=== PATIENT | female | born 1990 | race Caucasian/White ===

== ENCOUNTER → 2019-05-19 16:11 | Outpatient (CLI) | payer MEDICAID, SELFPAY ==
[2019-05-19 15:02] VITALS: BMI 29.0
[2019-05-19 17:14] LABS: Absolute Lymphocyte Count 2.25 X10^3/uL (0.83-4.51); Absolute Neutrophil Count 5.9 X10^3/uL (2.0-7.7); Basophil# 0.03 X10^3/uL; Basophil% 0.3 % (0-1); Eosinophil# 0.17 X10^3/uL; Eosinophils% 1.9 % (0-5); Hematocrit 38.1 % (37-47); Hemoglobin 12.8 g/dL (12.0-15.0); Lymphocyte # 2.25 X10^3/ul (4.0); Lymphocyte % 25.3 % (19-41); Mean Corp Hgb Conc 33.6 g/dL (32-36); Mean Corpuscular Hgb 30.7 pg (27.0-32.0); Mean Corpuscular Volume 91.4 fL (81-99); Mean Platelet Vol. 10.8 fl (6.2-12.0); Monocyte# 0.56 X10^3/uL; Monocyte% 6.3 % (0-10); NRBC Flagged by Analyzer 0 % (0-5); Neutrophil # 5.85 X10^3/uL (2.7-7.7); Neutrophil % 65.8 % (47-70); Platelet Count 307 K/mm3 (150-450); RBC Distribution Width CV 13.4 % (11.6-14.6); Red Blood Count 4.17 M/mm3 (4.2-5.4); White Blood Count 8.9 K/mm3 (4.4-11.0)
[2019-05-19 17:59] LABS: Glucose Challenge Gest 1H 50g 84 mg/dL (70-140)
[2019-05-19 18:07] LABS: Amphetamine Urine VISTA NEGATIVE (<1000 ng/mL); Barbiturate Urine VISTA NEGATIVE (< 200 ng/mL); Benzodiazepine Urine VISTA NEGATIVE (< 200 ng/mL); Cocaine Urine VISTA NEGATIVE (< 300 ng/mL); Ecstacy Urine VISTA NEGATIVE (< 500 ng/mL); Methadone Urine VISTA NEGATIVE (< 300 ng/mL); PCP Urine VISTA NEGATIVE (< 25 ng/mL); THC Urine VISTA POSITIVE (< 50 ng/mL); Vista UDS pH Range 5
[2019-05-19 18:51] LABS: HIV - WCH Non-Reactive (Nonreactive); Rubella IgG 26.4 IU/mL
[2019-05-19 21:54] LABS: Chlamydia Trachomatis by PCR Negative (Negative); Neisserai gonorrhoeae by PCR Negative (Negative); Probe Check PASS; Sample Adequacy Control PASS; Specimen Processing Control PASS
[2019-05-20 04:47] LABS: Rapid Plasmin Reagin (RPR) NONREACTIVE (NONREACTIVE)
[2019-05-22 03:05] LABS: HCV Quant. RNA PCR HCV Not Detected IU/mL (.)
[2019-05-24 15:46] LABS: HPV Reflexed? NOT INDICATED
== END ==
PROVIDERS: Referring Provider Obstetrics & Gynecology; Visit Provider Obstetrics & Gynecology
DX: O99.210 Obesity complicating pregnancy, unspecified trimester (principal); Z3A.00 Weeks of gestation of pregnancy not specified; Z87.898 Personal history of other specified conditions
CPT/HCPCS: 36415; 80307; 82950; 85025; 86592; 86703; 86762; 86850; 86900; 87086; 87088; 87186; 87491; 87522; 87591; 87624; 88175; G0145

== ENCOUNTER → 2019-06-17 15:35 | Outpatient (CLI) | payer MEDICAID, SELFPAY ==
[2019-06-17 15:22] VITALS: BMI 29.0
== END ==
PROVIDERS: Referring Provider Obstetrics & Gynecology; Visit Provider Obstetrics & Gynecology
DX: Z34.81 Encounter for supervision of other normal pregnancy, first trimester (principal); Z31.430 Encounter of female for testing for genetic disease carrier status for procreative management
CPT/HCPCS: 36415

== ENCOUNTER → 2019-07-15 09:42 | Outpatient (CLI) | payer MEDICAID, SELFPAY ==
[2019-07-15 09:14] VITALS: BMI 29.0
[2019-07-15 11:08] LABS: Hepatitis B Surface Antigen Non-Reactive (Nonreactive)
== END ==
PROVIDERS: Referring Provider Obstetrics & Gynecology; Visit Provider Obstetrics & Gynecology
DX: Z34.90 Encounter for supervision of normal pregnancy, unspecified, unspecified trimester (principal)
CPT/HCPCS: 36415; 87340

== ENCOUNTER → 2019-09-20 17:36 | Outpatient (CLI) | payer MEDICAID, SELFPAY ==
[2019-09-20 14:06] VITALS: BMI 29.0
[2019-09-20 18:50] LABS: Amphetamine Urine VISTA NEGATIVE (<1000 ng/mL); Barbiturate Urine VISTA NEGATIVE (< 200 ng/mL); Benzodiazepine Urine VISTA NEGATIVE (< 200 ng/mL); Cocaine Urine VISTA NEGATIVE (< 300 ng/mL); Ecstacy Urine VISTA NEGATIVE (< 500 ng/mL); Methadone Urine VISTA NEGATIVE (< 300 ng/mL); PCP Urine VISTA NEGATIVE (< 25 ng/mL); THC Urine VISTA POSITIVE (< 50 ng/mL); Vista UDS pH Range 6
== END ==
PROVIDERS: Referring Provider Obstetrics & Gynecology; Visit Provider Obstetrics & Gynecology
DX: Z87.898 Personal history of other specified conditions (principal)
CPT/HCPCS: 80307

== ENCOUNTER 2019-09-28 03:25 | Outpatient (CLI) | payer MEDICAID, SELFPAY ==
[2019-09-20 14:06] VITALS: BMI 29.0
[2019-09-28 04:13] VITALS: BMI 32.8
--- NOTE | 2019-09-29 04:44 | OB.TRI.PN ---
Progress Notes Date of Service: 09/28/19 Progress Note: seen for bleeding, FHT present no regular ctx dc home bleeding precautions - Problem List (1) Vaginal bleeding during Status: Acute Multi Select Codes - Urinary/Genital Urinary/Genital CPT Codes: Other Procedure See Report - no charge please report visit and ask Viky to update billing codes to have a no charge option
--- NOTE | 2019-10-01 11:24 | OB.TRI.PN ---
Progress Notes Date of Service: 10/01/19 Progress Note: steroid shot for prematurity, vaginal bleeding - Problem List (1) Vaginal bleeding during Status: Acute
== END 2019-09-28 04:20 | disposition home or self-care (01) ==
LOC: WPOUT 03:34 → WP 03:34
PROVIDERS: Visit Provider Obstetrics & Gynecology
DX: O46.90 Antepartum hemorrhage, unspecified, unspecified trimester (principal); Z3A.00 Weeks of gestation of pregnancy not specified
CPT/HCPCS: 59025; 59050; 99218; G0378

== ENCOUNTER 2019-09-29 23:48 | Observation (INO) | payer MEDICAID, SELFPAY ==
[2019-09-28 04:13] VITALS: BMI 32.8
[2019-09-29 18:32] VITALS: BMI 31.6
[2019-09-29] MEDS: 0.9% Saline Lock 10 ML Syringe IV (20:00)
[2019-09-29] MEDS: Lactated Ringers 1,000 ML 999 ML IV (20:15)
[2019-09-29] MEDS: Ondansetron 4 MG/2 ML Vial IV (20:18)
[2019-09-29] MEDS: Betamethasone/Betamethasone 30 MG/5 ML Vial 12 MG IM (20:21)
[2019-09-29 20:22] LABS: Hematocrit 34.4 % (37-47); Hemoglobin 11.4 g/dL (12.0-15.0); Mean Corp Hgb Conc 33.1 g/dL (32-36); Mean Corpuscular Hgb 30.8 pg (27.0-32.0); Mean Platelet Vol. 11.2 fl (6.2-12.0); Platelet Count 264 K/mm3 (150-450); RBC Distribution Width SD 44.6 fl (35.1-43.9); White Blood Count 12.9 K/mm3 (4.4-11.0)
[2019-09-29] MEDS: Acetaminophen 500 MG Tablet 1000 MG PO (20:30)
[2019-09-29] MEDS: Citalopram 20 MG Tablet PO (20:32)
[2019-09-29] MEDS: Docusate Sodium 100 MG Capsule PO (20:32)
[2019-09-29 20:49] LABS: Fibrinogen 668 mg/dl (203-444)
[2019-09-29] MEDS: Lactated Ringers 1,000 ML 125 ML IV (21:16)
[2019-09-29] MEDS: proMETHazine 25 MG/ML Syringe 12.5 MG IV (23:24)
[2019-09-29] MEDS: Zolpidem Tartrate 5 MG Tablet 10 MG PO (23:45)
--- NOTE | 2019-09-29 23:45 | OB.TRI.HP_ITS ---
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 (5) Depression with anxiety Status: Acute Comment: machelle andre PRN, refer to margaret for counseling (6) History of delivery Status: Acute Comment: planning RLTCS (7) History of depression Status: Acute Comment: recommend anazao (8) History of marijuana use Status: Acute Comment: incarcerated in past for this, doing well. encouraged cessation. (9) Tobacco use during Status: Acute Qualifiers: Comment: encouraged cessation (10) Status: Acute Qualifiers: Comment: carrier- negative, AFP-neg. NIPT low risk; needs 2 week follow up for anatomy-scheduled. (11) Supervision of normal Status: Acute Qualifiers: Comment: PRR INGE 12/25/19 Boy Mohamud Rousseau boyfriend Anthony History of Present Illness Date of Service: 09/29/19 Was patient seen by the physician?: Yes Reason For Visit: BLEEDING History of Present Illness: 29 yo @ 27 weeks presents with acute vaginal bleeding. She was seen several days ago for vaginal bleeding and is had persistent intermittent bleeding since. She was also having some cramping today. She was evaluated this morning at [facility] and left AMA. She denies any intercourse today and complains of increased anxiety and worry about her current symptoms. Allergies hydrocodone bitartrate [From Vicodin] Allergy (Verified 09/29/19 20:33) Anaphylaxis HIVES Penicillins Allergy (Verified 09/29/19 20:33) Anaphylaxis HIVES Sulfa (Sulfonamide Antibiotics) Allergy (Verified 09/29/19 20:33) Anaphylaxis HIVES - Pertinent Past Medical History Medical History: Past Medical History (Last Reviewed 09/20/19 @ 13:45 by Deidre Galvan) ADHD Anxiety and depression Surgical History: Past Surgical History (Last Reviewed 09/20/19 @ 13:45 by Deidre Galvan) delivery delivered Laboratory Studies: Laboratory Tests 09/29/19 09/29/19 09/29/19 Range/Units 20:10 20:10 20:10 WBC 12.9 H (4.4-11.0) K/mm3 RBC 3.70 L (4.2-5.4) M/mm3 Hgb 11.4 L (12.0-15.0) g/dL Hct 34.4 L (37-47) % MCV 93.0 (81-99) fL MCH 30.8 (27.0-32.0) pg MCHC 33.1 (32-36) g/dL RDW Std Deviation 44.6 H (35.1-43.9) fl RDW Coeff of Karmen 13.0 (11.6-14.6) % Plt Count 264 (150-450) K/mm3 MPV 11.2 (6.2-12.0) fl Fibrinogen 668 H (203-444) mg/dl Blood Type A POSITIVE Antibody Screen NEGATIVE Review of Systems Constitutional: Denies: Fever Cardiovascular: Denies: Chest Pain Respiratory: Denies: Cough Gastrointestinal: Denies: Abdominal Pain Gynecological: Reports: Vaginal bleeding Physical Exam General: Alert, Oriented x3 Cardiovascular: Regular rate Lungs: Normal air movement Abdomen: Soft, Non Tender 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 No cervical dilation. Plan STO overnight and if stable DC home tomorrow. Multi Select Codes - Visit Charges Observation E&M Codin Initial observation care L3
--- NOTE | 2019-09-30 00:01 | US_ITS ---
STUDY: SECOND AND THIRD TRIMESTER OBSTETRICAL ULTRASOUND - LIMITED REASON FOR EXAM: Female, 29 years old SPOTTING TODAY-HEAVIER YESTERDAY WITH CLOTS LMP: March 12, 2019. PRIOR ULTRASOUND: None. TECHNIQUE: Transabdominal TECHNICAL QUALITY: Adequate. FINDINGS: There is a single intrauterine fetus. The fetus is in a breech presentation. There is demonstrated cardiac activity with a heart rate of 152 bpm. There is a normal amniotic fluid volume. The largest amniotic fluid pocket measures 5.8 cm x 2.0 cm. The amniotic fluid index (LION) is 17.0 cm. The placenta is right lateral in location and is not low lying. There are Grade 1 placental changes. The cervix measures 4.7 cm in length. BIOMETRY: Age by LMP: 28 weeks, 6 days. INGE by LMP: December 17, 2019. US/OB Limited (No Biometrics) IMPRESSION: No evidence of placenta abruption. No evidence of placenta previa. Electronically Signed: Jeff Ignacio, at 9:34 EST , Service support ,
[2019-09-30] MEDS: Calcium Carbonate 500 MG Tablet PO (00:52)
[2019-09-30] MEDS: Lactated Ringers 1,000 ML 125 ML IV (04:42)
[2019-09-30 05:01] LABS: Hematocrit 32.9 % (37-47); Hemoglobin 10.8 g/dL (12.0-15.0); Mean Corp Hgb Conc 32.8 g/dL (32-36); Mean Corpuscular Hgb 30.4 pg (27.0-32.0); Mean Corpuscular Volume 92.7 fL (81-99); Mean Platelet Vol. 11.4 fl (6.2-12.0); Platelet Count 261 K/mm3 (150-450); RBC Distribution Width CV 12.9 % (11.6-14.6); RBC Distribution Width SD 43.8 fl (35.1-43.9); Red Blood Count 3.55 M/mm3 (4.2-5.4); White Blood Count 12.5 K/mm3 (4.4-11.0)
[2019-09-30 05:12] LABS: Fibrinogen 642 mg/dl (203-444)
--- NOTE | 2019-09-30 08:00 | PN.OBGYN_ITS ---
Subjective: Doing well this AM. Less anxious. Small tinge of dark blood on toilet tissue only today. Ultrasound scheduled this AM - Physical Exam Vitals/I&O's: Weight: 195 lb 12.328 oz Body Mass Index (BMI) 31.6 Intake and Output for Last 24 Hours 09/28/19 09/29/19 09/30/19 23:59 23:59 23:59 Intake Total 1400 / 1400 1029.17 / 1029.17 Output Total 200 / 200 Balance 1200 / 1200 1029.17 / 1029.17 General: Alert, Oriented x3 Laboratory Results 09/29/19 20:10: Fibrinogen 668 H 09/29/19 20:10: WBC 12.9 H, RBC 3.70 L, Hgb 11.4 L, Hct 34.4 L, MCV 93.0, MCH 30.8, MCHC 33.1, RDW Std Deviation 44.6 H, RDW Coeff of Karmen 13.0, Plt Count 264, MPV 11.2 09/29/19 20:10: Blood Type A POSITIVE, Antibody Screen NEGATIVE 09/30/19 04:47: Fibrinogen 642 H 09/30/19 04:47: WBC 12.5 H, RBC 3.55 L, Hgb 10.8 L, Hct 32.9 L, MCV 92.7, MCH 30.4, MCHC 32.8, RDW Std Deviation 43.8, RDW Coeff of Karmen 12.9, Plt Count 261, MPV 11.4 Current Medications Acetaminophen (Tylenol) 1,000 mg PO Q8H PRN PRN PRN Reason: Pain or Fever Last Admin: 09/29/19 20:30 Dose: 1,000 mg Documented by: Calcium Carbonate (Tums) 500 mg PO Q6H PRN PRN PRN Reason: HEARTBURN OR INDIGESTION Last Admin: 09/30/19 00:52 Dose: 500 mg Documented by: Citalopram Hydrobromide (Celexa) 20 mg PO DAILY [facility] Last Admin: 09/29/19 20:32 Dose: 20 mg Documented by: Docusate Sodium (Colace) 100 mg PO DAILY [facility] Last Admin: 09/29/19 20:32 Dose: 100 mg Documented by: Lactated Ringer's () 1,000 mls @ 125 mls/hr IV .Q8H [facility] Last Admin: 09/30/19 04:42 Dose: 125 mls/hr Documented by: Ondansetron HCl (Zofran) 4 mg IV Q8H PRN PRN PRN Reason: NAUSEA Last Admin: 09/29/19 20:18 Dose: 4 mg Documented by: Promethazine HCl (Phenergan) 12.5 mg IV Q6H PRN PRN PRN Reason: NAUSEA/VOMITING Last Admin: 09/29/19 23:24 Dose: 12.5 mg Documented by: Sodium Chloride () 5 - 15 ml IV UD [facility] Last Admin: 09/29/19 20:00 Dose: 10 ml Documented by: Medical Necessity - Tobacco Use Smoking Status: Current every day smoker Assessment/Plan All Active Problems (Last Reviewed 09/20/19 @ 13:45 by Deidre Galvan) Vaginal bleeding during (Acute) Influenza vaccination declined (Acute) Low grade squamous intraepithelial lesion (LGSIL) on Papanicolaou smear of cervix (Acute) Genital HSV (Acute) Depression with anxiety (Acute) History of delivery (Acute) History of depression (Acute) History of marijuana use (Acute) Tobacco use during (Acute) (Acute) Supervision of normal (Acute) Bleeding in -No CTX or active bleeding this am -Active fetus with good FHT -In normal US will DC home later today.
[2019-09-30] MEDS: Acetaminophen 500 MG Tablet 1000 MG PO (11:24)
[2019-09-30] MEDS: Citalopram 20 MG Tablet PO (11:24)
[2019-09-30] MEDS: Docusate Sodium 100 MG Capsule PO (11:25)
== END 2019-09-30 11:25 | disposition home or self-care (01) ==
LOC: WP 09-30 07:33 → WPOUT 09-30 13:14 → WP 09-30 13:14
PROVIDERS: Admitting Provider Obstetrics & Gynecology; Visit Provider Obstetrics & Gynecology
DX: O46.92 Antepartum hemorrhage, unspecified, second trimester (principal); Z3A.27 27 weeks gestation of pregnancy; O98.312 Other infections with a predominantly sexual mode of transmission complicating pregnancy, second trimester; A60.00 Herpesviral infection of urogenital system, unspecified; F41.8 Other specified anxiety disorders; O99.342 Other mental disorders complicating pregnancy, second trimester; O99.332 Smoking (tobacco) complicating pregnancy, second trimester; F17.200 Nicotine dependence, unspecified, uncomplicated
CPT/HCPCS: 96361 ×2; 96374; 96376; 36415; 59025; 59050; 76815; 85027; 85384; 86850; 86900; 86901; 96372; 99218; J7120; A4216; G0378; J0702; J2405

== ENCOUNTER 2019-09-30 20:32 | Outpatient (CLI) | payer MEDICAID, SELFPAY ==
[2019-09-29 18:32] VITALS: BMI 31.6
[2019-09-30 20:41] VITALS: BMI 32.3
[2019-09-30] MEDS: Betamethasone/Betamethasone 30 MG/5 ML Vial 12 MG IM (20:55)
== END 2019-09-30 21:05 | disposition home or self-care (01) ==
LOC: WPOUT 20:34 → WP 20:35
PROVIDERS: Referring Provider Obstetrics & Gynecology; Visit Provider Obstetrics & Gynecology
DX: R69 Illness, unspecified (principal)
CPT/HCPCS: 59025; 96372; 99218; G0378; J0702

== ENCOUNTER → 2019-10-10 09:41 | Outpatient (CLI) | payer MEDICAID, SELFPAY ==
[2019-10-10 09:12] VITALS: BMI 32.3
[2019-10-10 10:27] LABS: Absolute Lymphocyte Count 2.35 X10^3/uL (0.83-4.51); Absolute Neutrophil Count 7.5 X10^3/uL (2.0-7.7); Basophil# 0.02 X10^3/uL; Basophil% 0.2 % (0-1); Eosinophil# 0.16 X10^3/uL; Eosinophils% 1.5 % (0-5); Hematocrit 32.1 % (37-47); Hemoglobin 10.6 g/dL (12.0-15.0); Lymphocyte # 2.35 X10^3/ul (4.0); Lymphocyte % 21.8 % (19-41); Mean Corpuscular Hgb 30.5 pg (27.0-32.0); Mean Corpuscular Volume 92.2 fL (81-99); Mean Platelet Vol. 11.1 fl (6.2-12.0); Monocyte# 0.66 X10^3/uL; Monocyte% 6.1 % (0-10); NRBC Flagged by Analyzer 0 % (0-5); Neutrophil # 7.51 X10^3/uL (2.7-7.7); Neutrophil % 69.6 % (47-70); Platelet Count 273 K/mm3 (150-450); RBC Distribution Width CV 12.9 % (11.6-14.6); RBC Distribution Width SD 43.3 fl (35.1-43.9); Red Blood Count 3.48 M/mm3 (4.2-5.4); White Blood Count 10.8 K/mm3 (4.4-11.0)
[2019-10-10 10:43] LABS: Glucose Challenge Gest 1H 50g 205 mg/dL (70-140)
== END ==
PROVIDERS: Referring Provider Obstetrics & Gynecology; Visit Provider Obstetrics & Gynecology
DX: Z34.81 Encounter for supervision of other normal pregnancy, first trimester (principal)
CPT/HCPCS: 36415; 82950; 85025

== ENCOUNTER → 2019-10-31 16:08 | Outpatient (CLI) | payer MEDICAID, SELFPAY ==
[2019-10-31 14:27] VITALS: BMI 32.3
--- NOTE | 2019-10-31 16:09 | US_ITS ---
STUDY: SECOND AND THIRD TRIMESTER OBSTETRICAL ULTRASOUND REASON FOR EXAM: Female, 29 years old bleeding for over a month. Discharging dried blood.. Itching for a month. LMP: March 20, 2019. TECHNIQUE: PICC line TECHNICAL QUALITY: September 30, 2019. PRIOR ULTRASOUND: None. FINDINGS: There is a single intrauterine fetus. The fetus is in a cephalic presentation. There is demonstrated cardiac activity with a heart rate of 138 bpm. There is a normal amniotic fluid volume. The largest amniotic fluid pocket measures 5.77 cm. The amniotic fluid index (LION) is 17.4 cm. The placenta is right lateral in location and is not low lying. There are Grade 1 placental changes. The cervix measures 8.8 cm in length. The bilateral adnexal regions are normal. BIOMETRY: BPD: 8.03 cm: 32 weeks, 2 days HC: 29.82 cm: 33 weeks, 1 days AC: 27.88 cm: 32 weeks, 0 days FL: 6.28 cm: 32 weeks, 4 days CI: 82 FL/BPD: 78 FL/HC: FL/AC: 23 HC/AC: 1.07 age by current US: 32 weeks, 4 days. INGE by current US: December 22, 2019. Estimated weight: 1932 grams, +/- 282 grams, 42 %. age by prior US: 33 weeks, 2 days. INGE by prior US: December 17, 2019. Age by LMP: 32 weeks, 1 days. INGE by LMP: December 25, 2019. In the region of the cervix and upper vagina there is a linear echogenic focus of uncertain etiology. US/OB Limited With Biometrics IMPRESSION: 1. Live single intrauterine at 32 weeks, 4 days. INGE is December 22, 2019. There is adequate interval growth since the prior ultrasound. 2. EFW of 1932 g. 3. LION of 17.4 cm. 4. Right lateral grade 1 placenta. 5. Vertex presentation. 6. Echogenic linear structure in the cervix and vaginal area of on certain etiology. Electronically Signed: Corwin Almaguer DO at 20:53 EST Tel [phone], Service support ,
== END ==
PROVIDERS: Referring Provider Obstetrics & Gynecology; Visit Provider Obstetrics & Gynecology
DX: O46.90 Antepartum hemorrhage, unspecified, unspecified trimester (principal); Z3A.00 Weeks of gestation of pregnancy not specified
CPT/HCPCS: 76816

== ENCOUNTER → 2019-11-08 15:07 | Outpatient (CLI) | payer MEDICAID, SELFPAY ==
[2019-10-31 14:27] VITALS: BMI 32.3
[2019-11-08 15:37] LABS: Absolute Lymphocyte Count 2.41 X10^3/uL (0.83-4.51); Absolute Neutrophil Count 6.2 X10^3/uL (2.0-7.7); Basophil# 0.02 X10^3/uL; Basophil% 0.2 % (0-1); Eosinophil# 0.11 X10^3/uL; Eosinophils% 1.2 % (0-5); Hematocrit 32.4 % (37-47); Hemoglobin 10.7 g/dL (12.0-15.0); Lymphocyte # 2.41 X10^3/ul (4.0); Lymphocyte % 25.8 % (19-41); Mean Corpuscular Hgb 30.5 pg (27.0-32.0); Mean Corpuscular Volume 92.3 fL (81-99); Mean Platelet Vol. 11.9 fl (6.2-12.0); Monocyte# 0.61 X10^3/uL; Monocyte% 6.5 % (0-10); NRBC Flagged by Analyzer 0 % (0-5); Neutrophil # 6.16 X10^3/uL (2.7-7.7); Neutrophil % 65.9 % (47-70); Platelet Count 235 K/mm3 (150-450); RBC Distribution Width CV 12.8 % (11.6-14.6); RBC Distribution Width SD 42.5 fl (35.1-43.9); Red Blood Count 3.51 M/mm3 (4.2-5.4); White Blood Count 9.4 K/mm3 (4.4-11.0)
[2019-11-08 15:57] LABS: Fibrinogen 618 mg/dl (203-444)
[2019-11-28 09:30] LABS: Kleihauer-Betke Negative
== END ==
PROVIDERS: Referring Provider Nurse Practitioner Women's Health; Visit Provider Nurse Practitioner Women's Health
DX: O46.90 Antepartum hemorrhage, unspecified, unspecified trimester (principal); Z3A.00 Weeks of gestation of pregnancy not specified
CPT/HCPCS: 36415; 85025; 85384; 85460

== ENCOUNTER 2019-11-28 12:45 | Outpatient (CLI) | payer MEDICAID, SELFPAY ==
[2019-10-31 14:27] VITALS: BMI 32.3
[2019-11-16 13:32] VITALS: BMI 32.3
--- NOTE | 2019-11-28 12:46 | US_ITS ---
STUDY: SECOND AND THIRD TRIMESTER OBSTETRICAL ULTRASOUND - LIMITED REASON FOR EXAM: Female, 29 years old GROWTH . Gestational diabetes. LMP: 03/20/2019. PRIOR ULTRASOUND: 10/31/2019. TECHNIQUE: Transabdominal TECHNICAL QUALITY: Adequate. FINDINGS: There is a single intrauterine fetus. The fetus is in a cephalic presentation. There is demonstrated cardiac activity with a heart rate of 125 bpm. There is a normal amniotic fluid volume. The largest amniotic fluid pocket measures 6.2 cm. The amniotic fluid index (LION) is 20.1 cm. The placenta is right lateral and not low lying. There are Grade 2 placental changes. The cervix measures 3.8 cm in length. BIOMETRY: BPD: 8.57 cm.: 34 weeks, 4 days HC: 31.30 cm.: 35 weeks, 1 days AC: 30.69 cm.: 34 weeks, 5 days FL: 7.01 cm.: 36 weeks, 0 days Age by LMP: 36 weeks, 1 days. INGE by LMP: 12/25/2019. age by prior US: 36 weeks, 4 days. INGE by prior US: 12/22/2019.. age by current US: 35 weeks, 1 days. INGE by current US: 01/01/2020. Estimated weight: 2576 grams, +/- 376 grams, 23 percentile. Gender: Not demonstrated. US/OB Limited With Biometrics IMPRESSION: Single viable intrauterine gestation of 35 weeks, 1 day with estimated date of delivery of 01/01/2020. Estimated weight is 2576 g. Electronically Signed: Reinaldo Couch MD at 7:05 EST , Service support ,
[2019-11-28 14:16] LABS: Protein, Urine (Random) 31.3 mg/dL (<11.9); Protein:Creat Ratio 298 mg/g CRE (0-200)
[2019-11-28 14:35] VITALS: BMI 33.6
[2019-11-28 14:44] LABS: Hematocrit 33.2 % (37-47); Hemoglobin 10.9 g/dL (12.0-15.0); Mean Corp Hgb Conc 32.8 g/dL (32-36); Mean Corpuscular Hgb 29.9 pg (27.0-32.0); Mean Corpuscular Volume 91.2 fL (81-99); Platelet Count 224 K/mm3 (150-450); RBC Distribution Width CV 13.1 % (11.6-14.6); RBC Distribution Width SD 43.1 fl (35.1-43.9); Red Blood Count 3.64 M/mm3 (4.2-5.4); White Blood Count 8.5 K/mm3 (4.4-11.0)
[2019-11-28 15:03] LABS: Partial Thromboplast Time 28.8 Seconds (24.1-36.2); Prothrombin Time (Protime)PT. 12.6 SECONDS (11.7-14.9)
[2019-11-28 15:08] LABS: AST(SGOT) 9 U/L (15-37); Alanine Aminotransfer ALT/SGPT 14 U/L (13-56); Creatinine, Serum 0.71 mg/dL (0.55-1.02); EST Glomerular Filtration Rate 104 mL/min (>60); Est Glom Filt Rate - Afr Amer 126 mL/min (>60)
--- NOTE | 2019-11-29 07:54 | OB.TRI.PN ---
Progress Notes Date of Service: 11/28/19 Progress Note: Patient presents for triage evaluation secondary to elevated blood pressures FHT: 130 Moderate variability reactive no decelerations category I tracing [place]: No regular contractions Assessment and plan: Preeclampsia with mild features, no headaches labs drawn and no significant abnormality reactive NST, reassuring maternal and status patient discharged to home to follow-up as scheduled in office and plan delivery at 37 weeks now. See problem list details for additional plan information. Laboratory Studies: Laboratory Tests 11/28/19 11/28/19 11/28/19 Range/Units 14:30 14:30 14:30 WBC 8.5 (4.4-11.0) K/mm3 RBC 3.64 L (4.2-5.4) M/mm3 Hgb 10.9 L (12.0-15.0) g/dL Hct 33.2 L (37-47) % MCV 91.2 (81-99) fL MCH 29.9 (27.0-32.0) pg MCHC 32.8 (32-36) g/dL RDW Std Deviation 43.1 (35.1-43.9) fl RDW Coeff of Karmen 13.1 (11.6-14.6) % Plt Count 224 (150-450) K/mm3 MPV 12.0 (6.2-12.0) fl PT 12.6 (11.7-14.9) SECONDS INR 1.0 APTT 28.8 (24.1-36.2) Seconds Creatinine 0.71 (0.55-1.02) mg/dL Estim Creat Clear Calc 107.10 ml/min Est GFR (MDRD) Af Amer 126 (>60) mL/min Est GFR (MDRD) Non-Af 104 (>60) mL/min Uric Acid 4.0 (2.6-6.0) mg/dL AST 9 L (15-37) U/L ALT 14 (13-56) U/L U Random Total Protein (<11.9) mg/dL Urine Creatinine (NO RANGE EST.) mg/dL Protein/Creatinin Ratio (0-200) mg/g CRE 11/28/19 Range/Units 13:55 WBC (4.4-11.0) K/mm3 RBC (4.2-5.4) M/mm3 Hgb (12.0-15.0) g/dL Hct (37-47) % MCV (81-99) fL MCH (27.0-32.0) pg MCHC (32-36) g/dL RDW Std Deviation (35.1-43.9) fl RDW Coeff of Karmen (11.6-14.6) % Plt Count (150-450) K/mm3 MPV (6.2-12.0) fl PT (11.7-14.9) SECONDS INR APTT (24.1-36.2) Seconds Creatinine (0.55-1.02) mg/dL Estim Creat Clear Calc ml/min Est GFR (MDRD) Af Amer (>60) mL/min Est GFR (MDRD) Non-Af (>60) mL/min Uric Acid (2.6-6.0) mg/dL AST (15-37) U/L ALT (13-56) U/L U Random Total Protein 31.3 H (<11.9) mg/dL Urine Creatinine 105.00 (NO RANGE EST.) mg/dL Protein/Creatinin Ratio 298 H (0-200) mg/g CRE - Problem List (1) Preeclampsia Status: Acute Comment: plan delivery at 37 weeks cs scheduled Multi Select Codes - Urinary/Genital Urinary/Genital CPT Codes: 52020-91 non-stress test Interp
== END 2019-11-28 15:25 | disposition home or self-care (01) ==
LOC: US 12:46 → WPOUT 14:14 → OBT 14:15
PROVIDERS: Nurse Practitioner Women's Health; Referring Provider Obstetrics & Gynecology; Visit Provider Obstetrics & Gynecology
DX: O14.90 Unspecified pre-eclampsia, unspecified trimester (principal); Z3A.00 Weeks of gestation of pregnancy not specified
CPT/HCPCS: 36415; 59025; 59050; 76816; 82565; 82570; 84156; 84450; 84460; 84550; 85027; 85610; 85730; 87081; 99218; G0378

== ENCOUNTER 2019-12-05 05:53 | Inpatient (IN) | payer MEDICAID, SELFPAY ==
[2019-11-28 14:01] VITALS: BMI 32.3
[2019-12-01 15:09] VITALS: BMI 33.6
[2019-12-05] VITALS (15 sets, daily range): BP systolic 90–131; BP diastolic 48–89; PULSE 53–69; RESP 12–16; TEMP 35.5–36.5; O2SAT 97–100; BMI 33.8
[2019-12-05] MEDS: Lactated Ringers 1,000 ML 999 ML IV (06:10)
[2019-12-05 06:45] LABS: Bedside Glucose 77 mg/dL (70-110)
[2019-12-05 07:00] LABS: Absolute Lymphocyte Count 3.03 X10^3/uL (0.83-4.51); Absolute Neutrophil Count 5.5 X10^3/uL (2.0-7.7); Basophil# 0.03 X10^3/uL; Basophil% 0.3 % (0-1); Eosinophil# 0.17 X10^3/uL; Eosinophils% 1.8 % (0-5); Hematocrit 33.8 % (37-47); Hemoglobin 11.1 g/dL (12.0-15.0); Lymphocyte # 3.03 X10^3/ul (4.0); Lymphocyte % 32.2 % (19-41); Mean Corp Hgb Conc 32.8 g/dL (32-36); Mean Corpuscular Hgb 29.8 pg (27.0-32.0); Mean Corpuscular Volume 90.6 fL (81-99); Mean Platelet Vol. 12.6 fl (6.2-12.0); Monocyte# 0.62 X10^3/uL; Monocyte% 6.6 % (0-10); NRBC Flagged by Analyzer 0 % (0-5); Neutrophil # 5.53 X10^3/uL (2.7-7.7); Neutrophil % 58.7 % (47-70); Platelet Count 247 K/mm3 (150-450); RBC Distribution Width CV 13.2 % (11.6-14.6); RBC Distribution Width SD 43.2 fl (35.1-43.9); Red Blood Count 3.73 M/mm3 (4.2-5.4); White Blood Count 9.4 K/mm3 (4.4-11.0)
[2019-12-05] MEDS: Sodium Citrate/Citric Acid 30 ML UDC PO (07:11)
[2019-12-05] MEDS: Lactated Ringers 1,000 ML 150 ML IV (07:16)
--- NOTE | 2019-12-05 07:26 | PCM.HPOB.BLA ---
- Problem List (1) Depression with anxiety Status: Acute Comment: celexa, vistaril PRN, refer to margaret for counseling (2) Genital HSV Status: Acute Qualifiers: Comment: acyclovir at 36 weeks. (3) Gestational diabetes Status: Acute Qualifiers: Comment: diabetic diet, growth us at 36 weeks. delivery at 39 (4) History of delivery Status: Acute Comment: planning RLTCS (5) History of depression Status: Acute Comment: recommend anazao (6) History of marijuana use Status: Acute Comment: incarcerated in past for this, doing well. encouraged cessation. 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 NIPT low risk; needs 2 week follow up for anatomy-scheduled. 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 Is patient in pain?: No Allergies hydrocodone bitartrate [From Vicodin] Allergy (Verified 11/28/19 13:44) Anaphylaxis Penicillins Allergy (Verified 11/28/19 13:44) Anaphylaxis Sulfa (Sulfonamide Antibiotics) Allergy (Verified 11/28/19 13:44) Anaphylaxis Medications Citalopram [Celexa] 20 mg PO DAILY 09/30/19 [History Confirmed 12/01/19] blood sugar diagnostic See Rx Instructions .ROUTE .MEDSUPPLY #100 ea 10/10/19 [Rx Confirmed 12/01/19] blood-glucose meter See Rx Instructions .ROUTE .MEDSUPPLY #1 ea 10/10/19 [Rx Confirmed 12/01/19] acyclovir 800 mg tablet 800 mg PO DAILY #30 tab 11/28/19 [Rx Confirmed 12/01/19] Last Menstral Period: 03/12/19 Zika: Zika virus screening: Negative : No PFSH PFSH Medical History ADHD (Acute) Anxiety and depression (Acute) Social History (Updated 12/01/19 @ 16:[address] 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 Date Name GA/Weeks Outcome Route Bth Weight Infant Gen Labor Lgth Anesthesia Del Locatn Provider FOB Unknown 2015 [facility] live - full term 6lbs Female spinal [facility] Delivery Date: On 05/19/19 @ 15:02 Alyssa Braun c/s due to patients request HPI OB CHECK: Details: STEVE ACEVEDO is a 29 year old who presents for RLTCS due to previous and preeclampsia with mild features. OB Visit INGE Calculator Estimated Delivery Date Method Current WG Current Estimate 12/25/19 Ultrasound #1 36w 4d Other Estimates 12/17/19 LMP (Certain) 37w 5d Expected Delivery Route/Plan LTCS Labor Preferences- labor support person: Anthony pain management options preferred: c section cut cord/dad catch: [] : [] PP control planned: [] discussed possible routes of delivery and associated risks: [] special requests: [] Specific Issue/Plans flu vaccine: declines tdap vaccine: given rhogam: na LARC form signed: yes Problem list reviewed and updated with the most current plan of care details and appropriate orders placed. Relevant counseling for the gestational age provided. Continue routine care and follow up unless otherwise noted in visit notes/problem list details Initial Weight: Not Recorded Date EGA Weight BP Urine Prot Glucose FHR FuHt Pres Dilation Effaced St Visit Note 05/19/19 8w 4d 199 lb 06/17/19 12w 5d 192 lb 116/70 Trace Negative 160 no vb cramping, had some nausea 07/15/19 16w 5d 195 lb 110/70 Negative Negative 150 no vb cramping 08/17/19 21w 3d 200 lb 108/66 Negative Negative 145 22 no vb cramping 09/20/19 26w 2d 200 lb 2 oz 112/73 Negative Negative 150 26 no vb cramping 10/10/19 29w 1d 204 lb 127/74 Negative Negative 150 30 SM- no vb lof good fm no regular ctx cbc gct tdap 10/31/19 32w 1d 203 lb 2 oz 118/80 Trace Negative 149 33 MH-off and on light bleeding several days with cramping. Also vaginal itching. Good FM. Some cramping. MH-off and on light bleeding several days with cramping. Also vaginal itching. Good FM. Some cramping. BS >50% WNL but only eating/checking twice a day. Scheduled with dietitician. US today. 11/16/19 34w 3d 204 lb 6 oz 130/84 Negative Negative 131 34 MH-light spotting off and on entire /stable. No CTX. Good FM. BS WNL. 36 wk growth US scheduled. 11/28/19 36w 1d 202 lb 150/100 3+ A* Negative 161 36 0 MH-noted elevated BP and proteinuria. GBS done. To for monitoring, Pre E labs. MH-noted elevated BP and proteinuria. GBS done. No headaches. To for monitoring, Pre E labs. 12/01/19 36w 4d 205 lb 132/88 Negative Negative 150 37 SM- no vb lof good fm no regular ctx. recommend delivery at 37 weeks Notes Visit Date: 12/01/19 ??No visit notes to display Visit Date: 11/28/19 ??No visit notes to display Visit Date: 11/16/19 ??No visit notes to display Visit Date: 10/31/19 ??No visit notes to display Visit Date: 10/10/19 ??No visit notes to display Visit Date: 09/20/19 ??no vb cramping ??Sherley Houston MD on 09/20/19 Visit Date: 08/17/19 ??no vb cramping ??Sherley Houston MD on 08/17/19 Visit Date: 07/15/19 ??no vb cramping ??Sherley Houston MD on 07/15/19 Visit Date: 06/17/19 ??no vb cramping, had some nausea ??Sherley Houston MD on 06/18/19 Visit Date: 05/19/19 ??No visit notes to display ACOG First Trimester First Trimester: Desire for , Alcohol, Tobacco Cessation, Illicit/Recreational Drug/Substance Use, Intimate Partner Violence, Barriers to care, Unstable Housing, Communication Barriers, Environmental/Work Hazards, Anticipated Course of Care, Toxoplasmosis Precations, Use of Any medications, Sexual activity, Exercise, Dental Care, Sauna/Hot tub use, Seat Belt use, Childbirth classes/Hospital facilities, , Travel, Indications for US and Screening for Aneuploidy Second Trimester Second Trimester: Signs and Symptoms of Labor, Selecting a care provider, Reproductive Life Planning, Care Planning, Tobacco Cessation, Depression/Anxiety and Intimate Partner Violence Third Trimester Third Trimester: Pain Management Plans, Labor support person(s), Immediate Larc, Movement Monitoring and Feeding Yes ; discussed Trial of Labor after Counseling or discussed Circumcision preference Diagnostics Diagnostics Diagnostics Blood Type A POSITIVE 09/29/19 Antibody Screen NEGATIVE 09/29/19 Glucose 1 Hr 50 gm 205 mg/dL (70-140) H 10/10/19 Hgb 10.9 g/dL (12.0-15.0) L 11/28/19 Hct 33.2 % (37-47) L 11/28/19 Details: HIV: Urine Culture: Sequential Screen: NIPT Screen: ROS Const Reports system reviewed and no additional complaints, except as docu Card Reports system reviewed and no additional complaints, except as docu Resp Reports system reviewed and no additional complaints, except as docu GI Reports system reviewed and no additional complaints, except as docu, Reports nausea Reports system reviewed and no additional complaints, except as docu Musc Reports system reviewed and no additional complaints, except as docu Exam Const General: cooperative, healthy appearing, comfortable, anxious HENMT Head: normal to inspection Nose: external nose normal Face and sinus: normal facial exam Neck Neck: normal visual inspection, full ROM, no lymphadenopathy Thyroid: thyroid normal Chest Chest palpation & inspection: normal inspection of the chest Resp Effort & Inspection: normal respiratory effort GI Inspection: normal to inspection Palpation: soft, other (gravid uterus) Other: vertex and appropriate size for gestational age Other: Cervical Exam: Extrem General: pedal edema Results POC Urinalysis 2 Dip (Clinic) Office Urine Glucose Negative Last Edit by Alyssa Braun on 12/01/19 15:12 Office Urine Protein Negative Last Edit by Alyssa Braun on 12/01/19 15:12 Assessment & Plan Problems 1. Preeclampsia O14.90 2. Diet controlled gestational diabetes mellitus (GDM) in third trimester O24.410 3. Influenza vaccination declined Z28.21 4. 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 Herpes simplex vulvovaginitis A60.04 6. Depression with anxiety F41.8 7. History of delivery Z98.891 8. Encounter for supervision of other normal in third trimester Z34.83 9. 36 weeks gestation of Z3A.36 10. Maternal tobacco use in third trimester O99.333 11. History of marijuana use Z87.898 12. History of depression Z86.59 plan RLTCS Orders Orders: POC Urinalysis 2 Dip (Clinic) Today Coding Level of Care Code OB Routine Diagnoses Preeclampsia O14.90 Diet controlled gestational diabetes mellitus (GDM) in third trimester O24.410 ??Gestational diabetes mellitus control: diet-controlled ??Trimester: third trimester Influenza vaccination declined Z28.21 Low grade squamous intraepithelial lesion (LGSIL) on Papanicolaou smear of cervix R87.612 Herpes simplex vulvovaginitis A60.04 ??Herpes simplex infection site: vulvovaginitis Depression with anxiety F41.8 History of delivery Z98.891 Encounter for supervision of other normal in third trimester Z34.83 ??Normal : other normal ??Trimester: third trimester 36 weeks gestation of Z3A.36 ??Weeks of gestation: 36 weeks Maternal tobacco use in third trimester O99.333 ??Trimester: third trimester History of marijuana use Z87.898 History of depression Z86.59
[2019-12-05 07:33] LABS: Amphetamine Urine VISTA NEGATIVE (<1000 ng/mL); Barbiturate Urine VISTA NEGATIVE (< 200 ng/mL); Benzodiazepine Urine VISTA NEGATIVE (< 200 ng/mL); Cocaine Urine VISTA NEGATIVE (< 300 ng/mL); Ecstacy Urine VISTA NEGATIVE (< 500 ng/mL); Methadone Urine VISTA NEGATIVE (< 300 ng/mL); PCP Urine VISTA NEGATIVE (< 25 ng/mL); THC Urine VISTA POSITIVE (< 50 ng/mL); Vista UDS pH Range 5
--- NOTE | 2019-12-05 07:36 | NURSING ---
pt emesis after taking bicitra for scheduled RC/S
--- NOTE | 2019-12-05 08:00 | PLAC_PTH ---
PATIENT: STEVE ACEVEDO LOC: [facility] U#:[id number] AGE/SX: ROOM: WP004 RE12/05/[address]: Dr. Sherley Houston MD : 1990 BED: 1 DIS: 12/08/2019 SPEC #: [id number] RECD: 12/05/19 11:08 STATUS: CAMELIA REVicky #: [id number] BILL: 12/05/19 08:[address]: Sherley Houston DEPT: SURGICAL PATHOLOGY RECD BY: Swapnil Reyes ENTERED: 12/05/19 13:34 SP TYPE: PLACENTA OTHR DR: No Primary Care Phys Tissues: Placenta, NOS Procedures: Surgery Specimen Level V HEADER OPERATION: Repeat section PRE-OP DIAGNOSIS: Labor and delivery TISSUE SUBMITTED: Placenta MICROSCOPIC DIAGNOSIS Placenta: Placental disc - third trimester placenta, fragmented (338 gm). -?Extensive area of infarction involving thinnest portion of the placental disc with focal calcifications (occupying ~30% of the placental disc). Membranes - no pathologic diagnosis. Umbilical cord - three blood vessels and no pathologic diagnosis. SJ:lalo 12/07/19 MICROSCOPIC DESCRIPTION Slides are reviewed. GROSS DESCRIPTION SPECIMEN: PLACENTA / CLINICAL INFORMATION: A. Weight: 2.255 kg B. Gestational Age: 37 weeks C. Sex: Male Received is a markedly disrupted placenta in multiple pieces. PLACENTAL WEIGHT (POST FIXATION): The placental disc including detached pieces weighs in aggregate 338 gm. PLACENTAL DIMENSIONS: The largest piece consists of a placental disc which measures 21 x 19 x 3 cm. Multiple detached pieces of placenta are also noted which measures in aggregate 8 x 6 x 3 cm. PLACENTAL SHAPE: Usual ovoid. The placenta shows well formed cotyledons only in 50% of the placental disc in the peripheral portion. Central portion of the placental disc is markedly thinned and measures 0.2 to 1 cm in thickness PLACENTAL WEIGHT FOR GESTATIONAL AGE: Within 10-99th percentile. MEMBRANES - Present A. Insertion: Marginal B. Site of rupture from edge: The membranes are partly fragmented and distance of rupture cannot be assessed. C. Color of membrane: Casillas-gutierrez D. Abnormalities: None UMBILICAL CORD - Present A. Color: Casillas-gutierrez B. Insertion: Central C. Length: 23.0 cm D. Diameter: 1.2 cm E. Number of vessels: Three F. Abnormalities: None PLACENTAL DISC - Present A. Color of surface: Casillas-gutierrez B. surface abnormalities: None C. Maternal cotyledons: Present with markedly disrupted maternal surface. D. Attached retro placental clot: No clot E. Cut surface: Dark red and spongy F. Lesions: Central thin portion of the placental reveal casillas indurated cut surface occupying about 30% of the placental disc. G. Separate clot: A blood clot is also present in the container measuring 4 x 3 x 1.5 cm. SECTIONS SUBMITTED: 1. Membrane roll 2. Cord, maternal end, thin area of placenta 3. Cord, end, thin area of placenta 4. Placental disc, and maternal surfaces 5. Placental disc, and maternal surfaces 6. Placental disc, and maternal surfaces, detached smaller pieces of placenta SJ:lalo 12/06/19 TC:5 CPT: 10733
[2019-12-05] MEDS: Oxytocin 30 units/NS 500 ml 30 UNITS/500 ML IV.SOLN 167 UNITS IV (08:45)
--- NOTE | 2019-12-05 09:07 | NURSING ---
Indwelling urinary catheter present. WNL.
[2019-12-05 09:35] LABS: Bedside Glucose 97 mg/dL (70-110)
--- NOTE | 2019-12-05 11:20 | PCM.OPRPT ---
Problem List (1) Depression with anxiety Status: Acute Comment: machelle andre PRN, refer to [facility] for counseling (2) Genital HSV Status: Acute Qualifiers: Comment: acyclovir at 36 weeks. (3) Gestational diabetes Status: Acute Qualifiers: Comment: diabetic diet, growth us at 36 weeks. delivery at 39 (4) History of delivery Status: Acute Comment: planning RLTCS (5) History of depression Status: Acute Comment: recommend [facility] (6) History of marijuana use Status: Acute Comment: incarcerated in past for this, doing well. encouraged cessation. 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 NIPT low risk; needs 2 week follow up for anatomy-scheduled. 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 Riggs catheter was placed. The patient was placed in the dorsal supine position with leftward tilt. Patient was prepped and draped in the normal sterile fashion. Pfannenstiel skin incision was made with the scalpel and carried through to the underlying layer of fascia with the scalpel. Fascia was nicked in the midline and the incision extended laterally. The rectus bellies were dissected off superiorly and inferiorly with out complication both sharply and bluntly. The peritoneum was entered digitally. The incision was stretched and a low transverse uterine incision was made with the scalpel. The 's head was delivered atraumatically followed by the anterior and posterior shoulders without complication the rest of the delivered. The cord was clamped and cut and the infant was handed off to awaiting nurse. The placenta was delivered immediately following and was noted to have a three-vessel cord but the plane between the uterus and placenta was difficult to remove, and the remaining myometrium of the uterus was noted to be thin. placenta sent to pathology for analysis. banjo curettage or lining performed to ensure complete removal of POC. The uterus was exteriorized cleared of all clots and debris, and the incision was closed in a double layer closure using #1 Monocryl. aruna placed to obtain hemostasis. The ovaries and fallopian tubes were noted to be within normal limits. The uterus was returned to the maternal abdomen and gutters were cleared of all clots and debris. The peritoneum was closed with 3-0 Monocryl in a running fashion. Gloves were changed prior to fascial closure. Fascia was closed with 0 PDS in a running fashion. Subcutaneous tissue was copiously irrigated and the skin was closed with 3-0 Monocryl in a subcuticular fashion. Mepilex dressing was applied without complication. Patient was taken to recovery in stable condition. It was discussed with the patient that based on the clinical information obtained during this encounter, combined with her history, at this time I would recommend cesareans for future deliveries if further pregnancies are desired. Amniotic Membrane Rupture Type: Spontaneous Amniotic Fluid Description: Clear Placenta Disposition: [facility] Specimen(s) sent to pathology: none Fluids Replaced: crystalloid Cord Entanglement: None Cord Vessel Description: 3 Vessels Esitmated Blood Loss (ml): 700 Infant Gender: Male Delayed cord clamping: Yes Antibiotic Given: Clindamycin 600mg IV x1 and Gentamicin 1.5mg/kg IV x1 Pt instructed on risks of surgery: Bleeding, Anesthesia Risks, Infection, Injury to surrounding structure(s) including bowel and bladder Complications: None Multi Select Codes - Urinary/Genital Urinary/Genital CPT Codes: 54835 delivery+ Care([facility])
[2019-12-05] MEDS: Citalopram 20 MG Tablet PO (13:51)
[2019-12-05] MEDS: Lactated Ringers 1,000 ML 100 ML IV (18:00)
[2019-12-05] MEDS: Ketorolac 30 MG/ML Syringe IV (18:25)
--- NOTE | 2019-12-05 20:05 | NURSING ---
Pt tearful and upset about mercedez being transferred to [facility]. Understands why, but just states is stressful. Pt upset that RN cannot take chavira out (remains in d/t low urine output) and IV is still in (for fluids and pain medication), inhibiting her from going outside to smoke. RN explained reasons why things had to stay in and pt was agreeable and appreciative of RN explaining. Pt also asking RN about taking anti-anxiety medications, this RN explained that would have to be something discussed w/ Dr. Houston. This RN also explained that she will have to be careful on what she takes d/t her . Pt states understanding and said will f/u with Dr. Houston in AM.
[2019-12-05] MEDS: 0.9% Saline Lock 10 ML Syringe IV (20:16)
[2019-12-06] VITALS (7 sets, daily range): BP systolic 108–127; BP diastolic 58–76; PULSE 55–88; RESP 15–18; TEMP 36.4–37.2; O2SAT 97–99
[2019-12-06] MEDS: Ketorolac 30 MG/ML Syringe IV ×2 (00:37→06:06)
[2019-12-06] MEDS: 0.9% Saline Lock 10 ML Syringe IV (04:23)
[2019-12-06 05:25] LABS: Bedside Glucose 85 mg/dL (70-110)
[2019-12-06 05:25] LABS: Hematocrit 24.2 % (37-47); Hemoglobin 7.8 g/dL (12.0-15.0); Mean Corp Hgb Conc 32.2 g/dL (32-36); Mean Corpuscular Hgb 29.4 pg (27.0-32.0); Mean Corpuscular Volume 91.3 fL (81-99); Platelet Count 154 K/mm3 (150-450); RBC Distribution Width CV 13.2 % (11.6-14.6); RBC Distribution Width SD 43.6 fl (35.1-43.9); Red Blood Count 2.65 M/mm3 (4.2-5.4); White Blood Count 7.4 K/mm3 (4.4-11.0)
--- NOTE | 2019-12-06 08:42 | PCM.PN.OB ---
Subjective: Doing well, no complaints.Pain controlled. Denies CP, SOB, N,V. Ambulating well, tolerating po. Lochia moderate, going well. Baby in SCN for low blood sugars. - Physical Exam Vitals/I&O's: Vital Signs Temp Pulse Resp BP Pulse Ox 97.8 F 65 16 115/59 L 99 12/06/19 04:00 12/06/19 06:09 12/06/19 06:09 12/06/19 04:00 12/06/19 06:09 Oxygen Delivery Method Room Air Weight: 203 lb 8 oz Body Mass Index (BMI) 33.8 Intake and Output for Last 24 Hours 12/04/19 12/05/19 12/06/19 23:59 23:59 23:59 Intake Total 2735.75 / 2735.75 1525 / 1525 Output Total 850 / 850 1999 / 1999 Balance 1885.75 / 1885.75 -475 / -475 General: Oriented x3 Abdomen: Soft, Non-Distended, - - FF below U. Dressing dry and intact. Minimal tenderness with exam Laboratory Results 12/05/19 06:15: Blood Type A POSITIVE, Antibody Screen NEGATIVE 12/05/19 09:07: POC Glucose 97 12/06/19 05:10: WBC 7.4, RBC 2.65 L, Hgb 7.8 L, Hct 24.2 L, MCV 91.3, MCH 29.4, MCHC 32.2, RDW Std Deviation 43.6, RDW Coeff of Karmen 13.2, Plt Count 154, MPV 12.0 12/06/19 05:14: POC Glucose 85 Current Medications Acetaminophen (Tylenol) 1,000 mg PO Q8H PRN PRN Reason: Pain Score 1-3/10 Bisacodyl (Dulcolax) 10 mg RECTAL UD PRN PRN Reason: If no BM Citalopram Hydrobromide (Celexa) 20 mg PO DAILY EM Last Admin: 12/05/19 13:51 Dose: 20 mg Documented by: Glucagon () 1 mg IM .X1 PRN PRN Reason: Hypoglycemia Hydrocortisone (Hytone) 1 applic TOPICAL TID PRN PRN; Protocol PRN Reason: Discomfort Naloxone HCl 4 mg/ Dextrose 504 mls @ 0 mls/hr IV .Q0M PRN; Protocol PRN Reason: Respiratory depression Dextrose (Dextrose 10%-Water) 250 mls @ 999 mls/hr IV X1 PRN; Protocol PRN Reason: HYPOGLYCEMIA Ibuprofen (Motrin) 600 mg PO Q6H PRN PRN PRN Reason: Pain Score 1-3/10 Ketorolac Tromethamine (Toradol (Bkc)) 30 mg IV Q6 EM Stop: 12/07/19 12:01 Last Admin: 12/06/19 06:06 Dose: 30 mg Documented by: Meperidine HCl (Demerol) 25 mg IV Q2H PRN PRN PRN Reason: RIGORS Last Admin: 12/06/19 04:23 Dose: 25 mg Documented by: Naloxone HCl (Narcan) 0.02 mg IV Q1M PRN PRN Reason: RR <10 and pt unresponsive Ondansetron HCl (Zofran) 4 mg IV Q4H PRN PRN PRN Reason: Nausea Oxycodone HCl (Oxyir) 5 - 10 mg PO Q4H PRN PRN PRN Reason: Pain Score 4-10/10 Prochlorperazine Edisylate (Compazine Iv) 10 mg IV Q6H PRN PRN PRN Reason: NAUSEA Senna/Docusate Sodium (Senokot-S, Radha-Colace) 0 tablet PO DAILY PRN PRN Reason: Constipation Simethicone (Mylicon) 80 mg PO PCHS PRN PRN Reason: Indigestion/stomach pain Sodium Chloride () 5 - 15 ml IV UD PRN PRN Reason: SALINE FLUSH Last Admin: 12/06/19 04:23 Dose: 10 ml Documented by: Medical Necessity - Tobacco Use Smoking Status: Current every day smoker Assessment/Plan All Active Problems (Last Reviewed 12/01/19 @ 15:09 by Alyssa Braun) Preeclampsia (Acute) Gestational diabetes (Acute) Influenza vaccination declined (Acute) 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 routine post care 2. breast feeding- support given 3. rh positive 4. rubella immune 5. anemia-recheck CBC 0800
[2019-12-06 09:40] LABS: Hemoglobin 8.5 g/dL (12.0-15.0)
[2019-12-06] MEDS: oxyCODONE 5 MG Tablet PO ×3 (10:42→21:58)
[2019-12-06] MEDS: Citalopram 20 MG Tablet PO (10:42)
[2019-12-06] MEDS: Ibuprofen 600 MG Tablet PO (13:04)
[2019-12-07 02:30] VITALS: BP 112/61; PULSE 75; RESP 16; TEMP 36.7
[2019-12-07] MEDS: oxyCODONE 5 MG Tablet PO ×4 (03:32→20:12)
[2019-12-07] MEDS: Senna/Docusate Sodium 1 Tablet PO (07:44)
[2019-12-07] MEDS: Citalopram 20 MG Tablet PO (07:45)
[2019-12-07 07:46] VITALS: BP 144/80; PULSE 68; RESP 16; TEMP 36.7; O2SAT 97
--- NOTE | 2019-12-07 07:53 | PCM.PN.OB ---
Subjective: Doing well, no complaints.Pain controlled. Denies CP, SOB, N,V. Ambulating well, tolerating po. Lochia moderate, going well. Baby SCN but doing well - Physical Exam Vitals/I&O's: Vital Signs Temp Pulse Resp BP Pulse Ox 98.0 F 68 16 144/80 H 97 12/07/19 07:46 12/07/19 07:46 12/07/19 07:46 12/07/19 07:46 12/07/19 07:46 Oxygen Delivery Method Room Air Weight: 203 lb 8 oz Body Mass Index (BMI) 33.8 Intake and Output for Last 24 Hours 12/05/19 12/06/19 12/07/19 23:59 23:59 23:59 Intake Total 2735.75 / 2735.75 1525 / 1525 Output Total 850 / 850 1999 / 1999 Balance 1885.75 / 1885.75 -475 / -475 General: Alert, Oriented x3 Abdomen: Soft, Non-Distended, - - FF below U Dressing dry and intact Laboratory Results 12/06/19 09:30: Hgb 8.5 L Current Medications Acetaminophen (Tylenol) 1,000 mg PO Q8H PRN PRN Reason: Pain Score 1-3/10 Bisacodyl (Dulcolax) 10 mg RECTAL UD PRN PRN Reason: If no BM Citalopram Hydrobromide (Celexa) 20 mg PO DAILY EM Last Admin: 12/07/19 07:45 Dose: 20 mg Documented by: Glucagon () 1 mg IM .X1 PRN PRN Reason: Hypoglycemia Hydrocortisone (Hytone) 1 applic TOPICAL TID PRN PRN; Protocol PRN Reason: Discomfort Naloxone HCl 4 mg/ Dextrose 504 mls @ 0 mls/hr IV .Q0M PRN; Protocol PRN Reason: Respiratory depression Dextrose (Dextrose 10%-Water) 250 mls @ 999 mls/hr IV X1 PRN; Protocol PRN Reason: HYPOGLYCEMIA Ibuprofen (Motrin) 600 mg PO Q6H PRN PRN PRN Reason: Pain Score 1-3/10 Last Admin: 12/06/19 13:04 Dose: 600 mg Documented by: Meperidine HCl (Demerol) 25 mg IV Q2H PRN PRN PRN Reason: RIGORS Last Admin: 12/06/19 04:23 Dose: 25 mg Documented by: Naloxone HCl (Narcan) 0.02 mg IV Q1M PRN PRN Reason: RR <10 and pt unresponsive Ondansetron HCl (Zofran) 4 mg IV Q4H PRN PRN PRN Reason: Nausea Oxycodone HCl (Oxyir) 5 - 10 mg PO Q4H PRN PRN PRN Reason: Pain Score 4-10/10 Last Admin: 12/07/19 07:44 Dose: 10 mg Documented by: Prochlorperazine Edisylate (Compazine Iv) 10 mg IV Q6H PRN PRN PRN Reason: NAUSEA Senna/Docusate Sodium (Senokot-S, Radha-Colace) 0 tablet PO DAILY PRN PRN Reason: Constipation Last Admin: 12/07/19 07:44 Dose: 2 tablet Documented by: Simethicone (Mylicon) 80 mg PO PCHS PRN PRN Reason: Indigestion/stomach pain Sodium Chloride () 5 - 15 ml IV UD PRN PRN Reason: SALINE FLUSH Last Admin: 12/06/19 04:23 Dose: 10 ml Documented by: Medical Necessity - Tobacco Use Smoking Status: Current every day smoker Assessment/Plan All Active Problems (Last Reviewed 12/01/19 @ 15:09 by Alyssa Braun) Preeclampsia (Acute) Gestational diabetes (Acute) Influenza vaccination declined (Acute) Low grade squamous intraepithelial lesion (LGSIL) on Papanicolaou smear of cervix (Acute) Genital HSV (Acute) Depression with anxiety (Acute) History of delivery (Acute) History of depression (Acute) History of marijuana use (Acute) Tobacco use during (Acute) (Acute) Supervision of normal (Acute) s/p LTCS PPD # 2 1. routine post care 2. breast feeding- support given 3. rh positive 4. rubella immune
[2019-12-07] MEDS: Ibuprofen 600 MG Tablet PO ×2 (10:39→22:56)
[2019-12-07 13:45] LABS: Pathology Specimen OB SEE PATHOLOGY REPORT
[2019-12-07 13:59] VITALS: BP 130/82; PULSE 80; RESP 16; TEMP 36.6
[2019-12-07 20:15] VITALS: BP 119/80; PULSE 100; RESP 18; TEMP 36.9; O2SAT 99
[2019-12-08 02:15] VITALS: BP 110/64; PULSE 69; RESP 14; TEMP 36.7
[2019-12-08] MEDS: oxyCODONE 5 MG Tablet PO (06:52)
--- NOTE | 2019-12-08 08:05 | PCM.PN.OB ---
Subjective: Doing well, no complaints.Pain controlled. Denies CP, SOB, N,V. Ambulating well, tolerating po. Lochia moderate, going well. Baby SCN but open crib, doing well - Physical Exam Vitals/I&O's: Vital Signs Temp Pulse Resp BP Pulse Ox 98.1 F 69 14 110/64 99 12/08/19 02:15 12/08/19 02:15 12/08/19 02:15 12/08/19 02:15 12/07/19 20:15 Oxygen Delivery Method Room Air Weight: 203 lb 8 oz Body Mass Index (BMI) 33.8 Intake and Output for Last 24 Hours 12/06/19 12/07/19 12/08/19 23:59 23:59 23:59 Intake Total 1525 / 1525 Output Total 1999 Balance -475 / -475 General: Alert, Oriented x3 Abdomen: Soft, Non-Distended, - - FF below U. Dressing dry and intact Current Medications Acetaminophen (Tylenol) 1,000 mg PO Q8H PRN PRN Reason: Pain Score 1-3/10 Bisacodyl (Dulcolax) 10 mg RECTAL UD PRN PRN Reason: If no BM Citalopram Hydrobromide (Celexa) 20 mg PO DAILY EM Last Admin: 12/07/19 07:45 Dose: 20 mg Documented by: Glucagon () 1 mg IM .X1 PRN PRN Reason: Hypoglycemia Hydrocortisone (Hytone) 1 applic TOPICAL TID PRN PRN; Protocol PRN Reason: Discomfort Naloxone HCl 4 mg/ Dextrose 504 mls @ 0 mls/hr IV .Q0M PRN; Protocol PRN Reason: Respiratory depression Dextrose (Dextrose 10%-Water) 250 mls @ 999 mls/hr IV X1 PRN; Protocol PRN Reason: HYPOGLYCEMIA Ibuprofen (Motrin) 600 mg PO Q6H PRN PRN PRN Reason: Pain Score 1-3/10 Last Admin: 12/07/19 22:56 Dose: 600 mg Documented by: Meperidine HCl (Demerol) 25 mg IV Q2H PRN PRN PRN Reason: RIGORS Last Admin: 12/06/19 04:23 Dose: 25 mg Documented by: Naloxone HCl (Narcan) 0.02 mg IV Q1M PRN PRN Reason: RR <10 and pt unresponsive Ondansetron HCl (Zofran) 4 mg IV Q4H PRN PRN PRN Reason: Nausea Oxycodone HCl (Oxyir) 5 - 10 mg PO Q4H PRN PRN PRN Reason: Pain Score 4-10/10 Last Admin: 12/08/19 06:52 Dose: 5 mg Documented by: Prochlorperazine Edisylate (Compazine Iv) 10 mg IV Q6H PRN PRN PRN Reason: NAUSEA Senna/Docusate Sodium (Senokot-S, Radha-Colace) 0 tablet PO DAILY PRN PRN Reason: Constipation Last Admin: 12/07/19 07:44 Dose: 2 tablet Documented by: Simethicone (Mylicon) 80 mg PO PCHS PRN PRN Reason: Indigestion/stomach pain Sodium Chloride () 5 - 15 ml IV UD PRN PRN Reason: SALINE FLUSH Last Admin: 12/06/19 04:23 Dose: 10 ml Documented by: Medical Necessity - Tobacco Use Smoking Status: Current every day smoker Assessment/Plan All Active Problems (Last Reviewed 12/01/19 @ 15:09 by Alyssa Braun) Preeclampsia (Acute) Gestational diabetes (Acute) Influenza vaccination declined (Acute) Low grade squamous intraepithelial lesion (LGSIL) on Papanicolaou smear of cervix (Acute) Genital HSV (Acute) Depression with anxiety (Acute) History of delivery (Acute) History of depression (Acute) History of marijuana use (Acute) Tobacco use during (Acute) (Acute) Supervision of normal (Acute) s/p LTCS PPD # 3 1. routine post care 2. breast feeding- support given 3. rh positive 4. rubella immune 5. hotel status today
--- NOTE | 2019-12-08 08:14 | DCINST_ITS ---
Additional Instructions: If you experience any of the following, contact your healthcare provider. * Bleeding that soaks a pad every hour for 2 hours * Fever 100.4 or higher * Unrelieved incision or abdominal pain * Swelling, redness, discharge or bleeding from your incision or episiotomy site * Your incision begins to separate * Problems urinating (including inability to urinate or burning while urinating). * Visual changes * Severe headache * Flu-like symptoms * Pain or redness in one of both of your breasts * Pain, warmth, tenderness or swelling in your legs, especially the calf area * Frequent nausea and vomiting * Symptoms of depression or anxiety If you experience any of the following, call 911 or go to the nearest Emergency Room. * Chest pain * Problems breathing * Seizure activity * Partial or complete paralysis of a body part, slurred speech, weakness or drooping of the face, or a sudden inability to walk or hold your balance Allergies/Adverse Reactions: Allergies hydrocodone bitartrate [From Vicodin] Allergy (Verified 12/05/19 06:24) Anaphylaxis HIVES Penicillins Allergy (Verified 12/05/19 06:24) Anaphylaxis HIVES Sulfa (Sulfonamide Antibiotics) Allergy (Verified 12/05/19 06:24) Anaphylaxis HIVES Medications to take at Discharge Citalopram [Celexa] 20 mg PO DAILY 09/30/19 blood sugar diagnostic See Rx Instructions .ROUTE .MEDSUPPLY #100 ea 10/10/19 blood-glucose meter See Rx Instructions .ROUTE .MEDSUPPLY #1 ea 10/10/19 Naproxen [Naprosyn] 500 mg PO BID PRN PRN #60 tab 12/08/19 Oxycodone HCl/Acetaminophen [Percocet 5/325] 1 - 2 tablet PO Q4H PRN PRN 7 Days #28 tablet 12/08/19 The following prescriptions were given: Naproxen [Naprosyn] 500 mg PO BID PRN PRN #60 tab PRN Reason: Pain Transmission Status: Pending to [facility] Oxycodone HCl/Acetaminophen [Percocet 5/325] 1 - 2 tablet PO Q4H PRN PRN 7 Days #28 tablet PRN Reason: Pain Transmission Status: Sent to [facility] Follow-Up: Call to make an appointment with your doctor for an incision check in 1-2 weeks. You will also need a 6 week post- follow up appointment. Test results from this visit will be discussed in further detail at your follow- up appointment, if applicable. Primary Care Physician: Care Physician,No Primary [Primary Care Provider] -
--- NOTE | 2019-12-08 08:14 | PCM.DC.SUM ---
Discharge Date and Diagnosis Date of Admission: 12/05/19 Hospital Course and Treatment Consultations 12/05/19 06:44 Consult: Mental Health/Crisis Routine Reason for consult?: THC use Date Notified:: 12/05/19 Time notified:: 06:44 Operations: - - ltcs Summary of Care Provided: The patient is a 29 year old F repeat ltcs. Routine postpartem care. Reg diet. No restrictions - Physical Exam Vitals/I&O's: Vital Signs Temp Pulse Resp BP Pulse Ox 98.1 F 69 14 110/64 99 12/08/19 02:15 12/08/19 02:15 12/08/19 02:15 12/08/19 02:15 12/07/19 20:15 Oxygen Delivery Method Room Air Weight: 203 lb 8 oz Body Mass Index (BMI) 33.8 Intake and Output for Last 24 Hours 12/06/19 12/07/19 12/08/19 23:59 23:59 23:59 Intake Total 1525 / 1525 Output Total 1999 Balance -475 / -475 Current Medications Acetaminophen (Tylenol) 1,000 mg PO Q8H PRN PRN Reason: Pain Score 1-3/10 Bisacodyl (Dulcolax) 10 mg RECTAL UD PRN PRN Reason: If no BM Citalopram Hydrobromide (Celexa) 20 mg PO DAILY EM Last Admin: 12/07/19 07:45 Dose: 20 mg Documented by: Glucagon () 1 mg IM .X1 PRN PRN Reason: Hypoglycemia Hydrocortisone (Hytone) 1 applic TOPICAL TID PRN PRN; Protocol PRN Reason: Discomfort Naloxone HCl 4 mg/ Dextrose 504 mls @ 0 mls/hr IV .Q0M PRN; Protocol PRN Reason: Respiratory depression Dextrose (Dextrose 10%-Water) 250 mls @ 999 mls/hr IV X1 PRN; Protocol PRN Reason: HYPOGLYCEMIA Ibuprofen (Motrin) 600 mg PO Q6H PRN PRN PRN Reason: Pain Score 1-3/10 Last Admin: 12/07/19 22:56 Dose: 600 mg Documented by: Meperidine HCl (Demerol) 25 mg IV Q2H PRN PRN PRN Reason: RIGORS Last Admin: 12/06/19 04:23 Dose: 25 mg Documented by: Naloxone HCl (Narcan) 0.02 mg IV Q1M PRN PRN Reason: RR <10 and pt unresponsive Ondansetron HCl (Zofran) 4 mg IV Q4H PRN PRN PRN Reason: Nausea Oxycodone HCl (Oxyir) 5 - 10 mg PO Q4H PRN PRN PRN Reason: Pain Score 4-10/10 Last Admin: 12/08/19 06:52 Dose: 5 mg Documented by: Prochlorperazine Edisylate (Compazine Iv) 10 mg IV Q6H PRN PRN PRN Reason: NAUSEA Senna/Docusate Sodium (Senokot-S, Radha-Colace) 0 tablet PO DAILY PRN PRN Reason: Constipation Last Admin: 12/07/19 07:44 Dose: 2 tablet Documented by: Simethicone (Mylicon) 80 mg PO PCHS PRN PRN Reason: Indigestion/stomach pain Sodium Chloride () 5 - 15 ml IV UD PRN PRN Reason: SALINE FLUSH Last Admin: 12/06/19 04:23 Dose: 10 ml Documented by: Home Medications: Medications to take at Discharge Citalopram [Celexa] 20 mg PO DAILY 09/30/19 blood sugar diagnostic See Rx Instructions .ROUTE .MEDSUPPLY #100 ea 10/10/19 blood-glucose meter See Rx Instructions .ROUTE .MEDSUPPLY #1 ea 10/10/19 Naproxen [Naprosyn] 500 mg PO BID PRN PRN #60 tab 12/08/19 Oxycodone HCl/Acetaminophen [Percocet 5/325] 1 - 2 tablet PO Q4H PRN PRN 7 Days #28 tablet 12/08/19 Following Prescrptions Were Given to Patient: Naproxen [Naprosyn] 500 mg PO BID PRN PRN #60 tab PRN Reason: Pain Transmission Status: Pending to [facility] Oxycodone HCl/Acetaminophen [Percocet 5/325] 1 - 2 tablet PO Q4H PRN PRN 7 Days #28 tablet PRN Reason: Pain Transmission Status: Sent to [facility] Primary Care Physician: Care Physician,No Primary [Primary Care Provider] - Medical Necessity - Tobacco Use Smoking Status: Current every day smoker Meaningful Use Info Meaningful Use Diagnoses (Choose all that apply): None applicable
[2019-12-08] MEDS: Ibuprofen 600 MG Tablet PO (10:10)
[2019-12-08] MEDS: Citalopram 20 MG Tablet PO (10:10)
[2019-12-08 10:30] VITALS: BP 117/69; PULSE 89; RESP 16; TEMP 36.3; O2SAT 98
== END 2019-12-08 10:15 | disposition home or self-care (01) | DRG 540 ==
PROVIDERS: Admitting Provider Obstetrics & Gynecology; Referring Provider Obstetrics & Gynecology; Visit Provider Obstetrics & Gynecology
PROC: 10D00Z1 Extraction of Products of Conception, Low, Open Approach (ICD-10-PCS; CPT 59514; principal; 2019-12-05 07:15)
DX: O34.211 Maternal care for low transverse scar from previous cesarean delivery (principal); N85.8 Other specified noninflammatory disorders of uterus; F41.8 Other specified anxiety disorders; O99.344 Other mental disorders complicating childbirth; O24.420 Gestational diabetes mellitus in childbirth, diet controlled; O98.32 Other infections with a predominantly sexual mode of transmission complicating childbirth; A60.04 Herpesviral vulvovaginitis; F17.200 Nicotine dependence, unspecified, uncomplicated; O99.334 Smoking (tobacco) complicating childbirth; Z3A.37 37 weeks gestation of pregnancy; Z37.0 Single live birth; R87.612 Low grade squamous intraepithelial lesion on cytologic smear of cervix (LGSIL)
CPT/HCPCS: 80307; 82962; 85018; 85025; 85027; 86850; 86900; 86901; 88307; 99218; 99251; J7120; A4216; G0378; G0463; J2405

== ENCOUNTER 2019-12-10 21:12 | Emergency (ER) | payer MEDICAID, SELFPAY ==
[2019-12-05 06:15] VITALS: BMI 33.8
[2019-12-10 21:15] VITALS: BP 127/71; PULSE 123; RESP 18; TEMP 36.8; O2SAT 94; BMI 33.3
[2019-12-10 21:19] VITALS: BP 127/71; PULSE 123; RESP 18; TEMP 36.8; O2SAT 94
--- NOTE | 2019-12-10 22:00 | RAD_ITS ---
STUDY: X-RAY CHEST REASON FOR EXAM: Female, 29 years old. Headache chills cough. TECHNIQUE: PA and lateral COMPARISON: None. FINDINGS: No apparent pneumothorax, pneumonia, pleural effusion, or edema. Cardiac silhouette, eleonora and mediastinal contours are within normal limits. No acute osseous abnormality. No evidence of free air under the diaphragm. RAD/Chest PA and Lateral IMPRESSION: Negative chest radiograph. Electronically Signed: Lanre Colbert, at 22:27 EST Tel , Service support ,
[2019-12-10 22:19] VITALS: PULSE 115; RESP 18; TEMP 37; O2SAT 98
--- NOTE | 2019-12-10 22:59 | ED.DCSUM_ITS ---
- ER Visit Summary Date of Service: 12/10/19 Chief Complaint: Cough History of Present Illness: The patient is a [address] Mohamud Clarke. She does not have a primary care physician. She reports she has a cough that began 3 days ago. States that she had a [address] Mohamud Clarke. She denies any vaginal bleeding or abdominal pain. She reports that her wound is healing well. She is breast-feeding. She not get a flu shot this year. Patient complains of subjective fever and chills. She has a sore throat from coughing. She does report that she is had mild shortness of breath. She also complains of diffuse myalgias, generalized weakness, and a headache that is 5 out of 10 in severity. Physical Examination: Vitals: Stable. Afebrile. General: Well-nourished and well-developed. Head: Normocephalic atraumatic. Neck: Supple, no lymphadenopathy. No JVD. Nontender. Cardiovascular: Regular rate and rhythm. No murmurs. Respiratory: No respiratory distress. Clear to auscultation bilaterally. Abdominal: Soft, nontender, nondistended, normal bowel sounds. No guarding, rebound, or peritoneal signs. Back: Nontender. Extremities: Nontender, no edema. Skin: Normal color, no rash. Neurologic: Alert and oriented ?3. Cranial nerves II through XII are intact. Normal strength and sensation. Psych: Normal affect. Test Results: Influenza B positive. Chest x-ray shows no acute disease. Emergency Department Course and Treatment: Patient refused Tylenol or ibuprofen. She is given Tamiflu p.o. and is resting comfortably. Treatment Plan: The patient was discussed with Dr. Mohamud Clarke as well as with Dr. Gaby Cox. At this time she will be placed on Tamiflu. She is instructed to wear a mask when she is breast-feeding or to pump and feed from a bottle. We discussed the possibility of putting her 5-day-old on prophylactic Tamiflu. At this time Dr. Cox does not want to do this. She states that she will call in infectious disease specialist at [facility] tomorrow and then contact the patient with further instructions. Patient is happy with this plan. She was instructed to bring her to the emergency department if she develops any symptoms. Return to the emergency department for any worsening symptoms. Disposition: To home in improved and stable condition. Impression: 1. Influenza B. 2. 5 days status post . This note was generated with [employer] dictation software. It may contain incorrect words, spelling, and punctuation that were not noted in review of the chart prior to signing ED Disposition - Plan for ED Patient: Disposition: Home or Assisted Living Instructions: INFLUENZA (Adult) Prescriptions: Oseltamivir Phosphate [Tamiflu] 75 mg PO BID #10 cap Prescription Printed Referrals: Kaley Kong [NON-STAFF] - 1 Week if not improving
[2019-12-10 23:00] VITALS: BP 132/87; PULSE 114; RESP 18; TEMP 37; O2SAT 98
[2019-12-10] MEDS: Oseltamivir Phosphate 75 MG Capsule PO (23:25)
== END 2019-12-10 23:29 | disposition home or self-care (01) ==
LOC: ED 21:56
PROVIDERS: Emergency Provider Emergency Medicine
DX: J10.1 Influenza due to other identified influenza virus with other respiratory manifestations (principal)
CPT/HCPCS: 71046; 87804; 99283

== ENCOUNTER 2019-12-28 07:25 | Emergency (ER) | payer MEDICAID, SELFPAY ==
[2019-12-28 07:26] VITALS: BP 148/84; PULSE 75; RESP 20; TEMP 36.1; O2SAT 98; BMI 29.9
--- NOTE | 2019-12-28 07:46 | EKG12_ITS ---
Test Reason : ABD PAIN Blood Pressure : / mmHG Vent. Rate : 061 BPM Atrial Rate : 061 BPM P-R Int : 140 ms QRS Dur : 088 ms QT Int : 396 ms P-R-T Axes : 037 062 043 degrees QTc Int : 398 ms Normal sinus rhythm with sinus arrhythmia Normal ECG Confirmed by WILLIE SCHROEDER, SHADY ([id number]), material expeditor ROQUE CRUZ ([id number]) on 01/02/2020 11:23:16 AM Referred By: LINDA Confirmed By:CHLOE TAPIA MD
--- NOTE | 2019-12-28 07:49 | US_ITS ---
STUDY: ABDOMINAL ULTRASOUND - RIGHT UPPER QUADRANT REASON FOR VISIT: Female, 29 years old RT ABD PAIN X 2 DAYS TECHNIQUE: Ultrasound evaluation of the right upper quadrant was performed with real-time and static gutierrez-scale imaging. TECHNICAL QUALITY: Adequate. COMPARISON: None. FINDINGS: Liver: The liver measures 15.5 cm. There is increased echogenicity consistent with mild degree of fatty infiltration. The bile ducts are within normal limits. There is hepatic color flow. The direction of portal flow is hepatopetal. There is no demonstrated mass lesion. Gallbladder: Normal distended gallbladder. The gallbladder wall is slightly thickened and measures 3.2 mm. There is a negative sonographic Milan''s sign. There is no pericholecystic fluid. There are multiple echogenic structures within the gallbladder, consistent with multiple gallstones. Sludge is seen in the gallbladder lumen. Common Bile Duct (C.B.D.): The common bile duct measures 2.7 mm. Pancreas: Normal size of the head, body and tail of the pancreas. There is normal echogenicity of the pancreas. There is no demonstrated pancreatic mass or cyst. Right Kidney: Normal size of the right kidney. The right kidney measures 10.8 cm x 4.8 cm x 5.8 cm. Normal renal cortex. The right cortex measures 1.8 cm. There is no demonstrated renal mass or cyst. There is no right hydronephrosis. US/Abdomen Limited IMPRESSION: Multiple gallstones. Mild degree of fatty infiltration of the liver. Electronically Signed: Jeff Ignacio, at 9:38 EDT , Service support ,
--- NOTE | 2019-12-28 07:50 | ED.VIS.GEN ---
History of Present Illness Chief Complaint: Abd Pain Informant: Patient Narrative: Patient presents to the emergency department for evaluation of 2 days of right upper quadrant pain. She can find no position of comfort. She describes it as up under her rib cage and into her back on the right side. No nausea vomiting or diarrhea. She states that she recently recovered from influenza B and has had no further shortness of breath cough runny nose or sore throat. No fevers. She has been eating normally. She notes a but no other abdominal surgeries. Past Medical History - Allergies and Home Meds Allergies/Adverse Reactions: Allergies hydrocodone bitartrate [From Vicodin] Allergy (Verified 12/28/19 07:29) Anaphylaxis HIVES Penicillins Allergy (Verified 12/28/19 07:29) Anaphylaxis HIVES Sulfa (Sulfonamide Antibiotics) Allergy (Verified 12/28/19 07:29) Anaphylaxis HIVES Primary Care Physician: Care Physician,No Primary [Primary Care Provider] - Smoking Status: Current every day smoker Review of Systems General: Denies: Chills, Fever, Sweats Eyes: Denies: Visual changes - bilaterally, Diplopia ENT: Denies: Rhinorrhea, Sore throat Cardiovascular: Reports: Chest pain. Denies: Palpitations Respiratory: Denies: Dyspnea, Cough, Dyspnea on exertion Gastrointestinal: Reports: Abdominal pain. Denies: Nausea, Vomiting, Diarrhea, Melena, Hematochezia Genitourinary: Denies: Dysuria, Hematuria, Frequency Musculoskeletal: Denies: Back pain, Extremity Pain Skin: Denies: Rash, Wounds Neurological: Denies: Headache, Weakness, Numbness Physical Exam Vital Signs/Narrative: Vital Signs Temp Pulse Resp BP Pulse Ox 12/28/19 07:26 97 F L 75 20 H 148/84 H 98 Inital Vital Signs reviewed: Yes General: Well nourished, Well developed, No Acute Distress Head: Normocephalic, Atraumatic Eyes: Perrl, EOMI ENT: Moist mucous membranes, No rhinorrhea Neck: Supple, Nontender Cardiovascular: Regular rate, Regular rhythm, No murmurs Respiratory: No distress, CTA bilaterally, Chest nontender Abdomen: Soft, Nondistended, Normal bowel sounds, Tender - Right upper quadrant tenderness to palpation Back: Nontender, Normal Inspection Extremities: Nontender, No edema Skin: Normal color, No rash Neurological: Alert, Oriented x3, Cranial nerves II-XII grossly intact, Normal Strength, Normal Sensation Psychological: Normal affect, Normal Mood Diagnostic/Tx/Re-eval - EKG Initial EKG Interpretation: Sinus Rhythm - EKG is a normal sinus rhythm at a rate of 61 without concerning features of ACS. - Medical Decision Making Patient's basic labs are negative including liver enzymes and lipase. Chest x-ray negative. Gallbladder ultrasound shows multiple gallbladder stones negative Milan's slight thickening of the gallbladder wall and no pericholecystic fluid. No common bile duct dilatation noted. To rule out mimicker given her / status a CTA of the chest was performed which is negative for luminary embolism. Patient received a dose of Toradol and has been resting more comfortably. I discussed the case with our on-call surgeon Dr. Crabtree who recommends a strict diet and return to emergency department if she is worsening or uncontrolled pain. Patient was advised that all upcoming elective surgeries are on hold due to the pandemic. ED Disposition - Plan for ED Patient: Disposition: Home or Assisted Living Diagnosis: Biliary colic, Cholelithiasis Instructions: BILIARY COLIC with Gallstone (Confirmed) Prescriptions: Oxycodone HCl/Acetaminophen [Percocet 5/325] 1 tab PO Q6H PRN PRN 3 Days #12 tab PRN Reason: Pain Prescription Printed Ondansetron [Zofran Odt] 4 mg PO Q8H PRN PRN #20 tab PRN Reason: Nausea Prescription Printed Referrals: Jayden Crabtree MD [STAFF PHYSICIAN] - (call to [facility] follow up)
[2019-12-28] MEDS: Ketorolac 30 MG/ML Syringe IV (07:59)
[2019-12-28 08:01] LABS: Absolute Lymphocyte Count 2.77 X10^3/uL (0.83-4.51); Absolute Neutrophil Count 4.4 X10^3/uL (2.0-7.7); Basophil# 0.04 X10^3/uL; Basophil% 0.5 % (0-1); Eosinophil# 0.31 X10^3/uL; Eosinophils% 3.7 % (0-5); Hematocrit 32.8 % (37-47); Lymphocyte # 2.77 X10^3/ul (4.0); Lymphocyte % 33.5 % (19-41); Mean Corp Hgb Conc 30.5 g/dL (32-36); Mean Corpuscular Hgb 27.9 pg (27.0-32.0); Mean Corpuscular Volume 91.4 fL (81-99); Mean Platelet Vol. 10.1 fl (6.2-12.0); Monocyte# 0.72 X10^3/uL; Monocyte% 8.7 % (0-10); NRBC Flagged by Analyzer 0 % (0-5); Neutrophil # 4.38 X10^3/uL (2.7-7.7); Platelet Count 347 K/mm3 (150-450); RBC Distribution Width CV 13.4 % (11.6-14.6); RBC Distribution Width SD 45.2 fl (35.1-43.9); Red Blood Count 3.59 M/mm3 (4.2-5.4); White Blood Count 8.3 K/mm3 (4.4-11.0)
[2019-12-28 08:14] LABS: Mucous, Urine 0 SEEN /hpf (<or=2+); Red Blood Cells-Urine 0 SEEN /hpf (0-5)
[2019-12-28 08:16] LABS: ALB/GLOB Ratio 0.7 RATIO (0.9-2.4); AST(SGOT) 16 U/L (15-37); Alanine Aminotransfer ALT/SGPT 19 U/L (13-56); Albumin, Serum 2.9 g/dL (3.2-5.0); Alkaline Phosphatase 83 U/L (45-117); Anion Gap 6 (5-15); BUN 10 mg/dL (7-18); BUN/Creat Ratio 13.2 RATIO (10-20); Calcium,Total 8.1 mg/dL (8.5-10.1); Chloride 106 mmol/L (98-107); Creatinine, Serum 0.76 mg/dL (0.55-1.02); EST Glomerular Filtration Rate 97 mL/min (>60); Est Glom Filt Rate - Afr Amer 117 mL/min (>60); Estimated Creatinine Clearance 100.05 ml/min; Globulin 4.1 g/dL (2.2-4.2); Glucose 91 mg/dL (74-106); Lipase 183 U/L (73-393); Potassium 3.8 mmol/L (3.5-5.1); Sodium Level 138 mmol/L (136-145)
[2019-12-28 08:16] LABS: Color, Urine Yellow (Yellow); Glucose, Dipstick Normal (Normal); Ketone-Dipstick Negative (Negative); Leukocyte Esterase-Dipstick 25 /ul (Negative); Nitrite-Dipstick Negative (Negative); Occult Blood-Urine Negative /ul (Negative); Protein-Dipstick Negative (Negative); Specific Gravity, Urine 1.015 (1.002-1.030); Urine Bilirubin Dipstick Negative (Negative); Urine Clarity Clear (Clear); Urine Urobilinogen Normal (Normal)
--- NOTE | 2019-12-28 08:20 | RAD_ITS ---
STUDY: X-RAY CHEST REASON FOR EXAM: Female, 29 years old. Sharp pain in right side of chest under ribs radiating into back; pt had a on 12/05/2019 TECHNIQUE: PA and lateral views of the chest. COMPARISON: Comparison is made with prior examination of December 10, 2019. FINDINGS: Hyperinflation. Scattered calcified granulomas. There is no demonstrated pleural abnormality. Normal size heart. Normal mediastinum and eleonora. Normal visualized pulmonary arteries. Normal visualized aortic arch and descending thoracic aorta. Normal visualized thoracic spine. Normal visualized ribs, clavicles, and shoulders. There is no demonstrated abnormality of the visualized soft tissue structures of the upper abdomen. RAD/Chest PA and Lateral IMPRESSION: Hyperinflation. The lungs are clear. Electronically Signed: Jeff Ignacio, at 8:38 EDT , Service support ,
--- NOTE | 2019-12-28 08:29 | CT_ITS ---
STUDY: CTA CHEST REASON FOR EXAM: Female, 29 years old. RT CHEST PAIN POST RADIATION DOSAGE (If Supplied By Facility): CTDIvol = ( 10.85 ) mGy, DLP = ( 438.26 ) mGycm TECHNIQUE: The examination was performed with the intravenous administration of 100ML ISOVUE 370. Post-processing of the angiographic images was performed, with multiplanar reformation and 3D reconstruction. Individualized dose optimization techniques were used for this CT. COMPARISON: None. FINDINGS: Normal enhancement of the main pulmonary artery and right and left pulmonary arteries. Normal enhancement of the bilateral peripheral pulmonary arteries. There is no demonstrated pulmonary embolism. Normal thoracic aorta and visualized great vessels. There is no demonstrated aortic dissection. Normal heart and pericardium. Normal mediastinum. Normal hilar regions. Normal visualized trachea and bronchi. The lungs are well expanded. Normal pulmonary parenchyma. Normal pleura. Normal chest wall structures. Normal osseous structures. Normal visualized upper abdomen. CT/CTA Chest W/WO Contrast IMPRESSION: Normal CTA chest examination, without a demonstrated pulmonary embolism or arterial dissection. Electronically Signed: Jeff Ignacio, at 9:45 EDT , Service support ,
[2019-12-28 08:33] LABS: Bacteria 1+ /hpf (None Seen); Squamous Epithelial Cells - UA 0-5 SEEN /hpf (5-10); White Blood Cells 0-5 SEEN /hpf (0-5)
[2019-12-28 09:29] VITALS: BP 100/81; PULSE 69; RESP 12; O2SAT 98
[2019-12-28 10:16] VITALS: BP 134/92; PULSE 65; RESP 16; O2SAT 97
== END 2019-12-28 10:18 | disposition home or self-care (01) ==
PROVIDERS: Emergency Provider Emergency Medicine
DX: K80.70 Calculus of gallbladder and bile duct without cholecystitis without obstruction (principal); F17.200 Nicotine dependence, unspecified, uncomplicated
CPT/HCPCS: 71046; 71275; 76705; 80053; 81001; 83690; 85025; 93005; 96374; 99283; Q9967; A4216

== ENCOUNTER 2019-12-31 19:31 | Emergency (ER) | payer MEDICAID, SELFPAY ==
[2019-12-31 19:32] VITALS: BP 148/80; PULSE 93; RESP 16; TEMP 36.6; O2SAT 99; BMI 29.9
--- NOTE | 2019-12-31 20:05 | ED.VISSUMM ---
- ER Visit Summary Date of Service: 12/31/19 Chief Complaint: Right upper quadrant abdominal pain History of Present Illness: The patient is a 29 F who has right upper quadrant abdominal pain. She has had this for 1 week. She was seen here 3 days ago and diagnosed with gallstones. She continues to have pain that radiates into her back. Its in the right upper quadrant. She has felt nausea without vomiting. She admits to some diarrhea as well. No urinary symptoms. Denies fevers. She has been trying Tylenol at home without any relief. She has not been able to follow-up with a surgeon. Physical Examination: Vital signs reviewed. HEENT exam unremarkable. Heart is regular rate and rhythm without murmurs. Lungs are clear to auscultation. Abdomen is soft with right upper quadrant tenderness. There is no guarding or rebound tenderness. Extremities reveal no edema. Skin exam normal. Neurologic exam normal. Test Results: Laboratory studies are normal Emergency Department Course and Treatment: The patient's laboratory studies are normal. She does have cholelithiasis. I do not feel she needs immediate surgery. Due to the state of emergency for coronavirus. Elective surgeries have been postponed. Due to this I will give her a prescription for Percocet to help control her pain. I will give her surgical follow-up and they can subsequently give her medications Treatment Plan: [] Disposition: Discharge Impression: Cholelithiasis, subsequent visit This note was generated with [employer] dictation software. It may contain incorrect words, spelling, and punctuation that were not noted in review of the chart prior to signing ED Disposition - Plan for ED Patient: Disposition: Home or Assisted Living Instructions: Gallstones Prescriptions: Oxycodone HCl/Acetaminophen [Percocet 5/325] 1 tablet PO Q6H PRN PRN 3 Days #10 tablet PRN Reason: Pain Transmission Status: Sent to [facility] Referrals: Care Physician,No Primary [Primary Care Provider] -
[2019-12-31 20:21] LABS: Red Blood Count 3.53 M/mm3 (4.2-5.4); White Blood Count 5.9 K/mm3 (4.4-11.0)
[2019-12-31 20:22] LABS: Hematocrit 32.1 % (37-47); Hemoglobin 10.3 g/dL (12.0-15.0); Mean Corp Hgb Conc 32.1 g/dL (32-36); Mean Corpuscular Hgb 29.2 pg (27.0-32.0); Mean Corpuscular Volume 90.9 fL (81-99); Mean Platelet Vol. 10.9 fl (6.2-12.0); Platelet Count 324 K/mm3 (150-450); RBC Distribution Width CV 13.9 % (11.6-14.6); RBC Distribution Width SD 46.3 fl (35.1-43.9)
[2019-12-31 20:23] LABS: Absolute Neutrophil Count 3.1 X10^3/uL (2.0-7.7); Basophil% 0.3 % (0-1); Eosinophils% 2.9 % (0-5); Lymphocyte % 37.2 % (19-41); Monocyte% 7.2 % (0-10); Neutrophil # 3.05 X10^3/uL (2.7-7.7); Neutrophil % 52.1 % (47-70); POSITIVE COUNT NO; POSITIVE DIFFERENTIAL NO; POSITIVE MORPHOLOGY NO
[2019-12-31 20:24] LABS: Absolute Lymphocyte Count 2.18 X10^3/uL (0.83-4.51); Basophil# 0.02 X10^3/uL; Eosinophil# 0.17 X10^3/uL; Lymphocyte # 2.18 X10^3/ul (4.0); Monocyte# 0.42 X10^3/uL
[2019-12-31 20:59] LABS: ALB/GLOB Ratio 0.8 RATIO (0.9-2.4); AST(SGOT) 20 U/L (15-37); Alanine Aminotransfer ALT/SGPT 22 U/L (13-56); Albumin, Serum 3.1 g/dL (3.2-5.0); Alkaline Phosphatase 77 U/L (45-117); Anion Gap 6 (5-15); BUN 10 mg/dL (7-18); BUN/Creat Ratio 12.2 RATIO (10-20); Calcium,Total 8.6 mg/dL (8.5-10.1); Chloride 106 mmol/L (98-107); Creatinine, Serum 0.82 mg/dL (0.55-1.02); EST Glomerular Filtration Rate 89 mL/min (>60); Est Glom Filt Rate - Afr Amer 107 mL/min (>60); Estimated Creatinine Clearance 92.73 ml/min; Globulin 3.9 g/dL (2.2-4.2); Glucose 90 mg/dL (74-106); Lipase 135 U/L (73-393); Sodium Level 140 mmol/L (136-145)
[2019-12-31] MEDS: oxyCODONE 5 MG Tablet PO (20:59)
[2019-12-31 21:22] VITALS: BP 122/87; PULSE 64; RESP 17; O2SAT 100
== END 2019-12-31 21:27 | disposition home or self-care (01) ==
PROVIDERS: Emergency Provider Emergency Medicine
DX: R10.11 Right upper quadrant pain (principal); K80.20 Calculus of gallbladder without cholecystitis without obstruction
CPT/HCPCS: 80053; 83690; 85025; 99284; A4216

== ENCOUNTER 2020-01-03 10:06 | Day surgery (SDC) | payer MEDICAID, SELFPAY ==
[2020-01-02 12:44] VITALS: BMI 29.9
[2020-01-03] VITALS (10 sets, daily range): BP systolic 111–150; BP diastolic 70–119; PULSE 64–82; RESP 14–20; TEMP 36.6–37; O2SAT 92–100; BMI 29.9
[2020-01-03 10:27] LABS: Internal QC Validated? YES +Cl - CLEAR BKGD; Pregnancy, Urine Negative Negative
--- NOTE | 2020-01-03 10:43 | PCM.HP.BLA ---
Problem List (1) Cholecystitis, acute with cholelithiasis Status: Acute Qualifiers: Biliary obstruction: without biliary obstruction History and Physical Date of Admission: 01/03/20 [facility] [address] [place] [id number] OFFICE VISIT Date of Service: 01/03/20 MR#: [id number] Acct: [id number] Name: STEVE ACEVEDO Rep #: [id number] : 1990 Provider: Jayden Crabtree MD Age/Sex: 29/F Location: [facility] Status: Signed Intake Vital Signs 01/03/20 BMI 29.9 Intake Visit Reasons: biliary colic/gallstones Chief Complaint: est ob Allergies hydrocodone bitartrate [From Vicodin] Allergy (Verified 12/31/19 19:32) Anaphylaxis Penicillins Allergy (Verified 12/31/19 19:32) Anaphylaxis Sulfa (Sulfonamide Antibiotics) Allergy (Verified 12/31/19 19:32) Anaphylaxis [facility] Social History (Updated 01/03/20 @ 09:[address] 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 She has had 2 emergency room visits because of it. She has had intractable nausea today with dry heaves. She has had vomiting. She has had diarrhea. She had the symptoms starting even prior to her delivery. She had a December 05. That was a second . She has not had any jaundice. She denies fever. She does use tobacco rate at least a half a pack per day. Alcohol denies. [facility] Imaging Services [address] [place] [address] Abdomen Limited MR#: [id number] Name: STEVE ACEVEDOJudsonp #:[id number] : 1990F 29 From: Jeff Ignacio MD PCP:Care Physician, No Primary Status:REG ER Study:Abdomen Limited Date of Exam:12/28/19 Exam#[id number] Ordering Dr: Tapan Lu DO STUDY: ABDOMINAL ULTRASOUND - RIGHT UPPER QUADRANT REASON FOR VISIT: Female, 29 years old RT ABD PAIN X 2 DAYS TECHNIQUE: Ultrasound evaluation of the right upper quadrant was performed with real-time and static gutierrez-scale imaging. TECHNICAL QUALITY: Adequate. COMPARISON: None. FINDINGS: Liver: The liver measures 15.5 cm. There is increased echogenicity consistent with mild degree of fatty infiltration. The bile ducts are within normal limits. There is hepatic color flow. The direction of portal flow is hepatopetal. There is no demonstrated mass lesion. Gallbladder: Normal distended gallbladder. The gallbladder wall is slightly thickened and measures 3.2 mm. There is a negative sonographic Milan''s sign. There is no pericholecystic fluid. There are multiple echogenic structures within the gallbladder, consistent with multiple gallstones. Sludge is seen in the gallbladder lumen. Common Bile Duct (C.B.D.): The common bile duct measures 2.7 mm. Pancreas: Normal size of the head, body and tail of the pancreas. There is normal echogenicity of the pancreas. There is no demonstrated pancreatic mass or cyst. Right Kidney: Normal size of the right kidney. The right kidney measures 10.8 cm x 4.8 cm x 5.8 cm. Normal renal cortex. The right cortex measures 1.8 cm. There is no demonstrated renal mass or cyst. There is no right hydronephrosis. US/Abdomen Limited IMPRESSION: Multiple gallstones. Mild degree of fatty infiltration of the liver. Electronically Signed: Jeff Ignacio, at 9:38 EDT , Service support , [facility] [address] [place] [address] CTA Chest W/WO Contrast MR#: [id number] Name: STEVE ACEVEDO #:[id number] : 1990F 29 From: Jeff Ignacio MD PCP:Care Physician, No Primary Status:REG ER Study:CTA Chest W/WO Contrast Date of Exam:12/28/19 Exam#[id number] Ordering Dr: Tapan Lu DO STUDY: CTA CHEST REASON FOR EXAM: Female, 29 years old. RT CHEST PAIN POST RADIATION DOSAGE (If Supplied By Facility): CTDIvol = ( 10.85 ) mGy, DLP = ( 438.26 ) mGycm TECHNIQUE: The examination was performed with the intravenous administration of 100ML ISOVUE 370. Post-processing of the angiographic images was performed, with multiplanar reformation and 3D reconstruction. Individualized dose optimization techniques were used for this CT. COMPARISON: None. FINDINGS: Normal enhancement of the main pulmonary artery and right and left pulmonary arteries. Normal enhancement of the bilateral peripheral pulmonary arteries. There is no demonstrated pulmonary embolism. Normal thoracic aorta and visualized great vessels. There is no demonstrated aortic dissection. Normal heart and pericardium. Normal mediastinum. Normal hilar regions. Normal visualized trachea and bronchi. The lungs are well expanded. Normal pulmonary parenchyma. Normal pleura. Normal chest wall structures. Normal osseous structures. Normal visualized upper abdomen. CT/CTA Chest W/WO Contrast IMPRESSION: Normal CTA chest examination, without a demonstrated pulmonary embolism or arterial dissection. Electronically Signed: Jeff Ignacio, at 9:45 EDT , Service support , HPI HPI HPI: STEVE ACEVEDO, is a 29 F who presents to the office today for Exam Const General: cooperative Nutritional Appearance: obese Orientation: alert, awake Resp Effort & Inspection: normal respiratory effort Auscultation: clear to auscultation bilaterally Cardio Rate: regular rate Rhythm: regular rhythm GI Palpation: soft Auscultation: normal bowel sounds Extrem General: no calf tenderness bilaterally Psych Affect: normal affect Assessment & Plan Problems 1. Calculus of gallbladder with acute cholecystitis without obstruction K80.00 Plan Patient is acutely ill with intractable nausea vomiting currently. She has right upper quadrant pain. 2 emergency room visits. Clinical exam findings consistent with subacute cholecystitis cholelithiasis. I recommended the patient laparoscopic cholecystectomy with selective cholangiography. She is aware of the technique, benefit, risk, alternatives. I do believe that more immediate surgery is very much in her benefit. I do not believe that this is to be considered an elective procedure. She has had an opportunity to ask and have questions answered. We will proceed as noted. Jayden Crabtree M.D., F.A.C.S. Coding Level of Care Code Off vis,new,level 3 Diagnoses Calculus of gallbladder with acute cholecystitis without obstruction K80.00 ??Biliary obstruction: without biliary obstruction 01/03/20 0946 <Electronically signed by Jayden Crabtree MD> Date Jayden Crabtree MD Cosigner Signature: Date (if applicable) CC: ~ I have re-examined the patient. There are no clinical changes since date of exam.
[2020-01-03] MEDS: Lactated Ringers 1,000 ML 15 ML IV ×3 (10:45→13:00)
--- NOTE | 2020-01-03 11:30 | GALL_PTH ---
PATIENT: STEVE ACEVEDO LOC: [facility] U#:[id number] AGE/SX: 29/F ROOM: RE01/03/[address]: Dr. Jayden Crabtree MD : 1990 BED: DIS: 01/03/2020 SPEC #: [id number] RECD: 01/04/20 07:11 STATUS: CAMELIA RAISA #: [id number] BILL: 01/03/20 11:[address]: Jayden Crabtree DEPT: SURGICAL PATHOLOGY RECD BY: Contreras Jeong ENTERED: 01/04/20 09:03 SP TYPE: ZACHARIAH SPEARS DR: No Primary Care Phys Tissues: Gallbladder, NOS Procedures: Surgery Specimen Level III HEADER OPERATION: Laparoscopic cholecystectomy with IOC PRE-OP DIAGNOSIS: Calculus of gallbladder wit acute cholecystitis without obstruction TISSUE SUBMITTED: Gallbladder and contents MICROSCOPIC DIAGNOSIS Gallbladder, cholecystectomy: Chronic cholecystitis and cholelithiasis. AM:lalo 01/05/20 MICROSCOPIC DESCRIPTION Slides are reviewed. GROSS DESCRIPTION Received is one container labeled with the patient's name and designated gallbladder. The specimen consists of a gallbladder measuring 6 x 3 x 2 cm. The external surface is smooth and glistening. Focally, it is granular, hemorrhagic and contains cautery artifact. The lumen of the gallbladder contains yellow-green mucoid bile and multiple, chalky-yellow, mulberry shaped calculi averaging 0.6 cm in dimension. The mucosa is bile-stained and without any mass lesions. The gallbladder wall averages 0.2 cm in thickness and is free of mass lesions. Medical Device Sales Representative sections of the gallbladder and the cystic duct at margin of resection are submitted in one cassette. / AM:lalo 01/04/20 TC:3 CPT: 82729
--- NOTE | 2020-01-03 11:45 | RAD_ITS ---
STUDY: INTRAOPERATIVE CHOLANGIOGRAM. REASON FOR EXAM: Female, 29 years old. CALCULUS OF GALLBLADDER, ACUTE CHOLECYSTITIS WITHOUT OBSTRUCTION; -- CHOLANGIOGRAM CLEAR FLUOROSCOPY TIME (if supplied): ( 9.6 seconds ) minutes/seconds TECHNIQUE: An intraoperative cholangiogram was performed by the surgeon. Imaging was submitted. COMPARISON: None. FINDINGS: The visualized intrahepatic ducts are unremarkable. The common bile duct is not dilated. No intraluminal filling defect is seen. There is free flow of contrast into the duodenum. RAD/Cholangiogram/ O R,Initial IMPRESSION: Unremarkable intraoperative cholangiogram. Electronically Signed: Jeff Ignacio, at 14:30 EDT , Service support ,
[2020-01-03] MEDS: Bupivacaine Mpf 0.5% 30 ML VIAL (12:25)
--- NOTE | 2020-01-03 12:30 | DCINST_ITS ---
Discharge Diet: Light diet - advance as tolerated - if you have questions about your diet instructions, please talk to you doctor. Discharge Activity: May Not Drive - for 5-7 days or while taking narcotic pain medicine. May shower in (days): 1 Lifting Restrictions: 10 pounds Call your doctor if your incision/area has: Continuous Slow Oozing, Sudden Increased Bleeding, Increased Pain/ Swelling, Increased Redness, Foul Smelling Discharge Call your doctor if you observe: Fever of 101 or Higher Suture Line Care: Avoid Pulling/Pushing, Avoid Pinching/Bending Additional Dressing/Incision Instructions:: Change or remove dressing in 4 days. Leave steri-strips in place for 1 week. Allergies/Adverse Reactions: Allergies hydrocodone bitartrate [From Vicodin] Allergy (Verified 01/03/20 10:23) Anaphylaxis HIVES Penicillins Allergy (Verified 01/03/20 10:23) Anaphylaxis HIVES Sulfa (Sulfonamide Antibiotics) Allergy (Verified 01/03/20 10:23) Anaphylaxis HIVES Medications to take at Discharge Citalopram [Celexa] 20 mg PO DAILY 09/30/19 Ondansetron [Zofran Odt] 4 mg PO Q8H PRN PRN #20 tab 12/28/19 Primary Care Physician: Care Physician,No Primary [Primary Care Provider] - Test Results: Test results from this visit will be discussed in further detail at your follow- up appointment, if applicable. Please Follow Up With: Jayden Crabtree MD - [phone] When: Phone call in the office 7-10days for follow call discussion
--- NOTE | 2020-01-03 12:31 | PCM.OPRPT ---
Problem List (1) Cholecystitis, acute with cholelithiasis Status: Acute Qualifiers: Biliary obstruction: without biliary obstruction Report of Operation Date of Procedure: 01/03/20 Pre-Operative Diagnosis: Subacute cholecystitis cholelithiasis Post-Operative Diagnosis: Same Surgery/Procedure Performed:: Laparoscopic cholecystectomy with cholangiograms Description of Surgical Findings:: Timeout and informed consent was obtained. 29-year-old female taken the operating placement table underwent general endotracheal intubation anesthesia. Clindamycin 900 mg are given intravenously. The abdomen was sterilely prepped and draped. 0.5% Marcaine was used as local anesthetic. Throughout the procedure a total of 20 cc was used. Local was instilled. A vertical infraumbilical incision was created sharp dissection carried down through the subcutaneous tissue holding sutures of 0 Vicryl was placed varies needle inserted saline drop test performed the abdomen was insufflated with CO2 to a pressure of 10 mmHg pressure Wanda trocar inserted 10 laparoscope inserted no concern trocar injuries. Inspection revealed the recent . There appeared to be some mild thickening of the gallbladder wall. 5 mm trochars were placed in the epigastric mid abdomen right upper quadrant. The gallbladder was distracted blunt dissection once instituted that the infundibulum until clearly the cystic duct cystic artery was identified. The cystic duct was clipped and then incision made in the cystic duct and a cholangiogram catheter was inserted through a 14-gauge Angiocath. Fluoroscopically control cholangiograms were obtained demonstrating normal ductal anatomy. Cholangiogram catheter was removed and a additional hemo-lock clip was placed fully across the cystic duct. This appeared to have excellent control of the duct. There had been a small adherent vessel that was also secured with that clip. Hemostasis was nicely intact. The cystic artery was clipped proximally and distally and then transected. The gallbladder was dissected free from the liver bed using electrocautery. Hemo-lock clips were additionally used were indicated. The gallbladder was completely released with no spillage. Hemostasis was nicely intact. The gallbladder was placed in a retrieval bag. Because of the pandemic all air was now aspirated via the Carmen suction device. The gallbladder was removed at the umbilicus under direct visualization. The remaining trochars removed. The fascia at the umbilicus approximated interrupted 0 Vicryl [id number] suture. Skin edges approximated opted for Monocryl subdermal stitches. Steri-Strips Telfa and OpSite dressings applied. Sponge and instrument and needle counts reported the surgery correct. Specimens gallbladder. Drains none. Blood loss minimal. Jayden Crabtree Type of Anesthesia:: General Anesthesiologist: Austin Perez
[2020-01-03] MEDS: oxyCODONE 5 MG Tablet PO (14:54)
== END 2020-01-03 16:32 | disposition home or self-care (01) ==
LOC: SDC 10:08 → AC 10:08
PROVIDERS: Anesthesiology; Referring Provider Surgery; Visit Provider Surgery
PROC: (CPT 47610; principal; 2020-01-03 11:10)
DX: K80.12 Calculus of gallbladder with acute and chronic cholecystitis without obstruction (principal); F41.9 Anxiety disorder, unspecified; F32.9 Major depressive disorder, single episode, unspecified; Z79.899 Other long term (current) drug therapy; K21.9 Gastro-esophageal reflux disease without esophagitis; F17.200 Nicotine dependence, unspecified, uncomplicated
CPT/HCPCS: 47563; 74300; 76000; 81025; 88304; J7120; J2405

== ENCOUNTER 2020-07-08 12:58 | Emergency (ER) | payer MEDICAID, SELFPAY ==
[2020-01-03 10:34] VITALS: BMI 29.9
[2020-07-08 12:59] VITALS: BP 99/44; PULSE 112; RESP 18; TEMP 36.6; O2SAT 98; BMI 28.2
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
[2020-07-08] MEDS: Acetaminophen 500 MG Tablet 1000 MG PO (13:53)
[2020-07-08] MEDS: Ketorolac 60 MG/2 ML Vial IM (13:53)
== END 2020-07-08 15:06 | disposition home or self-care (01) ==
PROVIDERS: Emergency Provider Physician Assistant Medical
DX: S32.038A Other fracture of third lumbar vertebra, initial encounter for closed fracture (principal); S29.012A Strain of muscle and tendon of back wall of thorax, initial encounter; F17.200 Nicotine dependence, unspecified, uncomplicated; V89.0XXA Person injured in unspecified motor-vehicle accident, nontraffic, initial encounter
CPT/HCPCS: 72072; 72100; 96372; 99282

== ENCOUNTER 2020-07-13 13:06 | Emergency (ER) | payer MEDICAID, SELFPAY ==
[2020-07-13 13:07] VITALS: BP 125/74; PULSE 106; RESP 18; TEMP 36.4; O2SAT 99; BMI 28.2
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
== END 2020-07-13 14:20 | disposition home or self-care (01) ==
LOC: ED 13:41
PROVIDERS: Emergency Provider Emergency Medicine
DX: M48.56XA Collapsed vertebra, not elsewhere classified, lumbar region, initial encounter for fracture (principal); F17.200 Nicotine dependence, unspecified, uncomplicated
CPT/HCPCS: 99282

== ENCOUNTER → 2020-07-20 15:09 | Outpatient (CLI) | payer MEDICAID, SELFPAY ==
[2020-07-17 13:12] VITALS: BMI 28.2
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
== END ==
PROVIDERS: Referring Provider Orthopaedic Surgery; Visit Provider Orthopaedic Surgery
DX: S32.030A Wedge compression fracture of third lumbar vertebra, initial encounter for closed fracture (principal)
CPT/HCPCS: 72148

== ENCOUNTER 2020-08-15 20:23 | Emergency (ER) | payer MEDICAID, SELFPAY ==
[2020-07-23 11:51] VITALS: BMI 28.2
[2020-08-15 20:24] VITALS: BP 106/71; PULSE 120; RESP 18; TEMP 36.7; O2SAT 98; BMI 28.2
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
[2020-08-15] MEDS: Ondansetron 8 MG Tablet PO (20:46)
[2020-08-15] MEDS: morphine 8 MG/ML Syringe SC (20:47)
[2020-08-15 20:50] VITALS: BP 108/77; PULSE 62; RESP 15; O2SAT 98
== END 2020-08-15 20:55 | disposition home or self-care (01) ==
LOC: ED 20:52
PROVIDERS: Emergency Provider Emergency Medicine
DX: M54.5 Low back pain (principal); F17.200 Nicotine dependence, unspecified, uncomplicated
CPT/HCPCS: 96374; 99283

== ENCOUNTER → 2021-05-15 15:05 | Outpatient (CLI) | payer MEDICAID, SELFPAY ==
[2021-05-15 13:50] VITALS: BMI 28.2
[2021-05-15 15:23] LABS: Protein, Urine (Random) < 6.0 mg/dL (<11.9); Protein:Creat Ratio 77 mg/g CRE (0-200)
[2021-05-15 15:25] LABS: Amphetamine Urine VISTA NEGATIVE (<1000 ng/mL); Barbiturate Urine VISTA NEGATIVE (< 200 ng/mL); Benzodiazepine Urine VISTA NEGATIVE (< 200 ng/mL); Cocaine Urine VISTA NEGATIVE (< 300 ng/mL); Ecstacy Urine VISTA NEGATIVE (< 500 ng/mL); Methadone Urine VISTA NEGATIVE (< 300 ng/mL); PCP Urine VISTA NEGATIVE (< 25 ng/mL); THC Urine VISTA POSITIVE (< 50 ng/mL); Vista UDS pH Range 6
[2021-05-18 03:07] LABS: Chlamydia By Nucleic Acid AMP Negative (Negative)
[2021-05-18 08:33] LABS: Gonococcus By Nucleic Acid AMP Negative (Negative)
== END ==
PROVIDERS: Visit Provider Obstetrics & Gynecology
DX: Z34.81 Encounter for supervision of other normal pregnancy, first trimester (principal)
CPT/HCPCS: 80307; 82570; 84156; 87086; 87491; 87591

== ENCOUNTER → 2021-06-14 09:34 | Outpatient (CLI) | payer MEDICAID, SELFPAY ==
[2021-06-14 10:11] LABS: Absolute Lymphocyte Count 1.52 X10^3/uL (0.83-4.51); Absolute Neutrophil Count 5.7 X10^3/uL (2.0-7.7); Basophil# 0.02 X10^3/uL; Basophil% 0.3 % (0-1); Eosinophil# 0.11 X10^3/uL; Eosinophils% 1.4 % (0-5); Hematocrit 39.4 % (37-47); Hemoglobin 13.1 g/dL (12.0-15.0); Lymphocyte # 1.52 X10^3/ul (0.83-4.51); Lymphocyte % 19.6 % (19-41); Mean Corp Hgb Conc 33.2 g/dL (32-36); Mean Corpuscular Hgb 30.2 pg (27.0-32.0); Mean Corpuscular Volume 90.8 fL (81-99); Mean Platelet Vol. 10.6 fl (6.2-12.0); Monocyte# 0.37 X10^3/uL; Monocyte% 4.8 % (0-10); NRBC Flagged by Analyzer 0 % (0-5); Neutrophil # 5.69 X10^3/uL (2.7-7.7); Neutrophil % 73.4 % (47-70); Platelet Count 245 K/mm3 (150-450); RBC Distribution Width CV 13.7 % (11.6-14.6); RBC Distribution Width SD 45.6 fl (35.1-43.9); Red Blood Count 4.34 M/mm3 (4.2-5.4); White Blood Count 7.8 K/mm3 (4.4-11.0)
[2021-06-14 10:41] LABS: NATERA MAILED SPECIMEN
[2021-06-14 11:16] LABS: ALB/GLOB Ratio 0.7 RATIO (0.9-2.4); AST(SGOT) 10 U/L (15-37); Alanine Aminotransfer ALT/SGPT 17 U/L (13-56); Alkaline Phosphatase 57 U/L (45-117); Anion Gap 4 (5-15); BUN 5 mg/dL (7-18); BUN/Creat Ratio 9.3 RATIO (10-20); Chloride 106 mmol/L (98-107); Creatinine, Serum 0.54 mg/dL (0.55-1.02); EST Glomerular Filtration Rate 142 mL/min (>60); Est Glom Filt Rate - Afr Amer 172 mL/min (>60); Globulin 4.1 g/dL (2.2-4.2); Glucose 108 mg/dL (74-106); Glucose Challenge Gest 1H 50g 108 mg/dL (70-140); Potassium 3.3 mmol/L (3.5-5.1); Protein, Total 7.1 g/dL (6.4-8.2); Sodium Level 136 mmol/L (136-145)
[2021-06-14 11:19] LABS: HIV - WCH Non-Reactive (Nonreactive); Hepatitis B Surface Antigen Non-Reactive (Nonreactive); Hepatitis C Antibody Non-Reactive (Nonreactive); Rubella IgG Reactive (Nonreactive); Syphilis Antibodies Non-reactive
== END ==
PROVIDERS: Referring Provider Obstetrics & Gynecology; Visit Provider Obstetrics & Gynecology
DX: O09.299 Supervision of pregnancy with other poor reproductive or obstetric history, unspecified trimester (principal); Z86.32 Personal history of gestational diabetes; Z3A.00 Weeks of gestation of pregnancy not specified
CPT/HCPCS: 36415; 80053; 82950; 85025; 86703; 86762; 86780; 86803; 86850; 86900; 86901; 87340

== ENCOUNTER → 2021-07-31 16:19 | Outpatient (CLI) | payer MEDICAID, SELFPAY ==
--- NOTE | 2021-07-31 16:21 | US_ITS ---
STUDY: SECOND AND THIRD TRIMESTER OBSTETRICAL ULTRASOUND REASON FOR EXAM: Female, 31 years old anatomy LMP: 03/10/2021. TECHNIQUE: Transabdominal and Transvaginal TECHNICAL QUALITY: Adequate. PRIOR ULTRASOUND: None. FINDINGS: There is a single intrauterine fetus. The fetus is in a cephalic presentation. There is demonstrated cardiac activity with a heart rate of 173 bpm. There is a normal amniotic fluid volume. The largest amniotic fluid pocket measures 3.1 cm x 4.8 cm. The amniotic fluid index (LION) is within normal limits. The placenta is fundal in location. There are Grade 1 placental changes. The cervix measures 4.2 cm in length. The adnexal regions are not visualized. BIOMETRY: BPD: 4.63 cm: 20 weeks, 0 days HC: 17.83 cm: 20 weeks, 2 days AC: 15.15 cm: 20 weeks, 2 days FL: 3.17 cm: 19 weeks, 6 days CI: 80.2% FL/BPD: 68.5% FL/HC: FL/AC: 21% HC/AC: 1.18 age by current US: 19 weeks, 5 days. INGE by current US: 12/21/2019. Estimated weight: 335 grams, +/- 50 grams, 30 %. Age by LMP: 20 weeks, 3 days. INGE by LMP: 12/15/2021. ANATOMY: Gender: Female Cranium: Normal lateral ventricles. Bilateral choroid plexus cyst. The left choroid plexus cyst measures 7 mm x 7 mm. The right groin plexus cyst measures 3 mm x 3 mm. Normal cerebellum. Normal cisterna magna. Normal face, nose and lips. Chest: Normal 4-chamber heart. Abdomen/Pelvis: Normal diaphragm. Normal stomach. Normal abdominal wall. Normal cord insertion. Normal 3 vessel cord. Normal kidneys. Normal bladder. Spine: Normal cervical spine. Normal thoracic spine. Normal lumbar spine. Normal sacrum. Extremities: Normal bilateral upper extremities. Normal bilateral lower extremities. IMPRESSION: Single live intrauterine gestation with mean gestational age of 19 weeks and 5 days. Small bilateral choroid plexus cysts. Electronically Signed: Jeff Ignacio MD at 14:29 EDT , Service support , STUDY: SECOND AND THIRD TRIMESTER OBSTETRICAL ULTRASOUND REASON FOR EXAM: Female, 31 years old anatomy LMP: 03/10/2021. TECHNIQUE: Transabdominal and Transvaginal TECHNICAL QUALITY: Adequate. PRIOR ULTRASOUND: None. FINDINGS: There is a single intrauterine fetus. The fetus is in a cephalic presentation. There is demonstrated cardiac activity with a heart rate of 173 bpm. There is a normal amniotic fluid volume. The largest amniotic fluid pocket measures 3.1 cm x 4.8 cm. The amniotic fluid index (LION) is within normal limits. The placenta is fundal in location. There are Grade 1 placental changes. The cervix measures 4.2 cm in length. The adnexal regions are not visualized. BIOMETRY: BPD: 4.63 cm: 20 weeks, 0 days HC: 17.83 cm: 20 weeks, 2 days AC: 15.15 cm: 20 weeks, 2 days FL: 3.17 cm: 19 weeks, 6 days CI: 80.2% FL/BPD: 68.5% FL/HC: FL/AC: 21% HC/AC: 1.18 age by current US: 19 weeks, 5 days. INGE by current US: 12/21/2019. Estimated weight: 335 grams, +/- 50 grams, 30 %. Age by LMP: 20 weeks, 3 days. INGE by LMP: 12/15/2021. ANATOMY: Gender: Female Cranium: Normal lateral ventricles. Bilateral choroid plexus cyst. The left choroid plexus cyst measures 7 mm x 7 mm. The right groin plexus cyst measures 3 mm x 3 mm. Normal cerebellum. Normal cisterna magna. Normal face, nose and lips. Chest: Normal 4-chamber heart. Abdomen/Pelvis: Normal diaphragm. Normal stomach. Normal abdominal wall. Normal cord insertion. Normal 3 vessel cord. Normal kidneys. Normal bladder. Spine: Normal cervical spine. Normal thoracic spine. Normal lumbar spine. Normal sacrum. Extremities: Normal bilateral upper extremities. Normal bilateral lower extremities. US/OB Anatomy Scan
== END ==
PROVIDERS: Referring Provider Nurse Practitioner Women's Health; Visit Provider Nurse Practitioner Women's Health
DX: Z34.81 Encounter for supervision of other normal pregnancy, first trimester (principal)
CPT/HCPCS: 76805; 76817

== ENCOUNTER → 2021-09-27 09:17 | Outpatient (CLI) | payer MEDICAID, SELFPAY ==
[2021-09-27 09:43] LABS: Absolute Lymphocyte Count 1.66 X10^3/uL (0.83-4.51); Absolute Neutrophil Count 5.7 X10^3/uL (2.0-7.7); Basophil# 0.02 X10^3/uL; Basophil% 0.2 % (0-1); Eosinophil# 0.12 X10^3/uL; Eosinophils% 1.5 % (0-5); Hematocrit 33.7 % (37-47); Hemoglobin 11.2 g/dL (12.0-15.0); Lymphocyte # 1.66 X10^3/ul (0.83-4.51); Lymphocyte % 20.3 % (19-41); Mean Corp Hgb Conc 33.2 g/dL (32-36); Mean Corpuscular Hgb 30.3 pg (27.0-32.0); Mean Corpuscular Volume 91.1 fL (81-99); Mean Platelet Vol. 10.5 fl (6.2-12.0); Monocyte# 0.58 X10^3/uL; Monocyte% 7.1 % (0-10); NRBC Flagged by Analyzer 0 % (0-5); Neutrophil # 5.73 X10^3/uL (2.7-7.7); Platelet Count 255 K/mm3 (150-450); RBC Distribution Width CV 12.6 % (11.6-14.6); RBC Distribution Width SD 41.1 fl (35.1-43.9); White Blood Count 8.2 K/mm3 (4.4-11.0)
[2021-09-27 10:01] LABS: Glucose Challenge Gest 1H 50g 117 mg/dL (70-140)
== END ==
PROVIDERS: Referring Provider Obstetrics & Gynecology; Visit Provider Obstetrics & Gynecology
DX: Z34.91 Encounter for supervision of normal pregnancy, unspecified, first trimester (principal)
CPT/HCPCS: 36415; 82950; 85025

== ENCOUNTER 2021-10-29 05:00 | Inpatient (IN) | payer MEDICAID, SELFPAY ==
[2021-10-28] VITALS (9 sets, daily range): BP systolic 111–126; BP diastolic 67–83; PULSE 68–106; TEMP 36.1–36.6; O2SAT 97–100; BMI 28.6
[2021-10-28 20:03] LABS: Bacteria 0 SEEN /hpf (None Seen); White Blood Cells 0 SEEN /hpf (0-5)
[2021-10-28 20:05] LABS: Color, Urine Amber (Yellow); Glucose, Dipstick Normal (Normal); Ketone-Dipstick 5 mg/dl (Negative); Leukocyte Esterase-Dipstick 25 /ul (Negative); Nitrite-Dipstick Negative (Negative); Occult Blood-Urine 250 /ul (Negative); Protein-Dipstick 30 mg/dl (Negative); Specific Gravity, Urine 1.025 (1.002-1.030); Urine Clarity Cloudy (Clear); Urine Urobilinogen 4 mg/dl (Normal)
[2021-10-28 20:13] LABS: Urine Bilirubin Dipstick 1 mg/dL (Negative)
[2021-10-28 20:15] LABS: Red Blood Cells-Urine > 100 SEEN /hpf (0-5)
[2021-10-28 20:16] LABS: Mucous, Urine RARE /hpf (<or=2+); Squamous Epithelial Cells - UA 5-10 SEEN /hpf (5-10)
[2021-10-28] MEDS: Azithromycin 250 MG Tablet 1000 MG PO (21:34)
[2021-10-28] MEDS: Betamethasone/Betamethasone 30 MG/5 ML Vial 12 MG IM (21:35)
[2021-10-28 21:40] LABS: Absolute Lymphocyte Count 1.68 X10^3/uL (0.83-4.51); Absolute Neutrophil Count 6.2 X10^3/uL (2.0-7.7); Basophil# 0.01 X10^3/uL; Basophil% 0.1 % (0-1); Eosinophil# 0.03 X10^3/uL; Eosinophils% 0.4 % (0-5); Hematocrit 30.5 % (37-47); Hemoglobin 10.4 g/dL (12.0-15.0); Lymphocyte # 1.68 X10^3/ul (0.83-4.51); Lymphocyte % 20.2 % (19-41); Mean Corp Hgb Conc 34.1 g/dL (32-36); Mean Corpuscular Hgb 30.1 pg (27.0-32.0); Mean Corpuscular Volume 88.2 fL (81-99); Monocyte# 0.37 X10^3/uL; Monocyte% 4.5 % (0-10); NRBC Flagged by Analyzer 0 % (0-5); Neutrophil # 6.17 X10^3/uL (2.7-7.7); Neutrophil % 74.3 % (47-70); Platelet Count 224 K/mm3 (150-450); RBC Distribution Width CV 12.6 % (11.6-14.6); RBC Distribution Width SD 40.2 fl (35.1-43.9); Red Blood Count 3.46 M/mm3 (4.2-5.4); White Blood Count 8.3 K/mm3 (4.4-11.0)
[2021-10-28 22:59] LABS: Group B Strep DNA By PCR Negative (Negative); Internal Control PASS; Probe Check PASS; Specimen Processing Control PASS
[2021-10-28 23:11] LABS: Chlamydia Trachomatis by PCR Negative (Negative); Neisserai gonorrhoeae by PCR Negative (Negative); Probe Check PASS; Sample Adequacy Control PASS; Specimen Processing Control PASS
[2021-10-29] VITALS (27 sets, daily range): BP systolic 80–133; BP diastolic 51–89; PULSE 53–85; RESP 11–20; TEMP 36–36.7; O2SAT 93–100
[2021-10-29] MEDS: Acetaminophen 500 MG Tablet 1000 MG PO ×4 (00:12→21:15)
[2021-10-29] MEDS: Famotidine 20 MG Tablet PO (00:15)
[2021-10-29] MEDS: Lactated Ringers 1,000 ML 125 ML IV (04:15)
[2021-10-29 04:33] LABS: Absolute Lymphocyte Count 1.11 X10^3/uL (0.83-4.51); Absolute Neutrophil Count 6.5 X10^3/uL (2.0-7.7); Basophil# 0.01 X10^3/uL; Basophil% 0.1 % (0-1); Hematocrit 33.4 % (37-47); Hemoglobin 11.1 g/dL (12.0-15.0); Lymphocyte # 1.11 X10^3/ul (0.83-4.51); Lymphocyte % 14.4 % (19-41); Mean Corp Hgb Conc 33.2 g/dL (32-36); Mean Corpuscular Hgb 29.5 pg (27.0-32.0); Mean Corpuscular Volume 88.8 fL (81-99); Mean Platelet Vol. 11.8 fl (6.2-12.0); Monocyte# 0.08 X10^3/uL; NRBC Flagged by Analyzer 0 % (0-5); Neutrophil # 6.46 X10^3/uL (2.7-7.7); Neutrophil % 83.9 % (47-70); Platelet Count 244 K/mm3 (150-450); RBC Distribution Width CV 12.5 % (11.6-14.6); RBC Distribution Width SD 40.5 fl (35.1-43.9); Red Blood Count 3.76 M/mm3 (4.2-5.4); White Blood Count 7.7 K/mm3 (4.4-11.0)
[2021-10-29 04:41] LABS: Fibrinogen 630 mg/dl (203-444)
[2021-10-29 04:47] LABS: ROM Internal Control Test YES-OK TO RESULT pt. (Internal QC)
[2021-10-29 04:48] LABS: ROM Patient Test POSITIVE (Negative)
--- NOTE | 2021-10-29 05:33 | HP.PCM.OB_ITS ---
HPI - General General Date of Admission: 10/29/21 HPI Narrative STEVE ACEVEDO, is a 31 F who presents with bloody discharge. Patient felt a gush of fluid on 10/28 at 5:30 PM and had a small amount of vaginal bleeding at that time. Patient denies any regular contractions. She denies any abdominal pain. Upon initial evaluation patient cervix was closed with no obvious leaking but some blood present. Initial ROM plus was positive however was bloody which may decrease the sensitivity of the test. Patient was admitted and managed for P PROM with antibiotics for latency and upon admission COVID testing was COVID- positive. Patient states that she had a headache that lasted for 5 days starting last Thursday that was refractory to padx-gql-cedkurv medications and has had a runny nose along with it. She was unable to obtain a test from the library last week and did not call her physician or go to an urgent care for evaluation. Maternal Data Information INGE Calculator Estimated Delivery Date Method Current WG Current Estimate 12/15/21 Ultrasound #1 33w 2d Other Estimates 12/22/21 LMP (Uncertain) 32w 2d PFSH PFSH Medical History ADHD Anxiety and depression Hx Gallbladder Removal Low grade squamous intraepithelial lesion (LGSIL) on Papanicolaou smear of cervix Home Medications promethazine 12.5 mg tablet 12.5 mg PO Q6H PRN #60 tab 05/15/21 [Rx Last Taken Unknown] famotidine 20 mg tablet 20 mg PO BID #60 tab 10/15/21 [Rx Last Taken Unknown] Allergy/AdvReac Type Severity Reaction Status Date / Time hydrocodone bitartrate Allergy Anaphylaxis Verified 10/15/21 10:12 [From Vicodin] Penicillins Allergy Anaphylaxis Verified 10/15/21 10:12 Sulfa (Sulfonamide Allergy Anaphylaxis Verified 10/15/21 10:12 Antibiotics) Family History Father Diabetes Surgical History delivery delivered Social History Smoking Status: Current every day smoker alcohol intake: never substance use type: marijuana and other details: not since she has found out she is caffeine: Yes what type of physical activity do you participate in: none seatbelt use: always do you feel safe at home: Yes additional social history: Anthony- [employer] Patient is unemployed History 3 Elective abortions Hx Para 2 Spontaneous abortions Hx # Term Pregnancies 2 Ectopic pregnancies Hx # Pregnancies Multiple births # of living children 2 Past Pregnancies Del. Date Name GA/Weeks Outcome Route Bth Weight Gen Labor Lgth Anesthesia Del Locatn Provider FOB Unknown 2015 Jacques live - full term 6lbs Fem mervat spinal [facility] SM 12/05/19 Mohamud 37 live - full term Male sp inal [facility] REBECCA Delivery Date: c/s due to patients request/ genital herpes Sherley Houston Delivery Date: 12/05/19 pre-e Leidy Potts Visit Details Expected Delivery Route/Plan RLTCS with Plans Covid status: counseled regarding risk of covid in vs vaccination and declined vaccination Flu vaccine: declined Tdap vaccine: [] Rhogam: [] LARC form signed: [] Problem list reviewed and updated with the most current plan of care details and appropriate orders placed. Relevant counseling for the gestational age provided. Continue routine care and follow up unless otherwise noted in visit notes/problem list details OB Flowsheet Initial Weight: 168 lb Date -?-?-?-?-?-?-?-?-?-?-?-?- EGA Weight BP Urine Prot -?-?-?-?-?-?-?-?-?-?-?-?- Glucose FHR FuHt Pres Dilation -?-?-?-?-?-?-?-?-?-?-?-?- Effaced St Visit Note 05/15/21 -?-?-?-?-?-?-?-?-?-?-?-?- 9w 3d 169 lb 2 oz (+1 lb 2 oz) 110/70 -?-?-?-?-?-?-?-?-?-?-?-?- 171 -?-?-?-?-?-?-?-?-?-?-?-?- GP - CRL 24mm NO T consistent with LMP. 06/14/21 -?-?-?-?-?-?-?-?-?-?-?-?- 13w 5d 169 lb (+16 oz) 110/80 Negative -?-?-?-?-?-?-?-?-?-?-?-?- Negative 168 -?-?-?-?-?-?-?-?-?-?-?-?- GP - no cramping or bleeding. Anatomy scan ordered. NIPT and NOB labs drawn today. 07/31/21 -?-?-?-?-?-?-?-?-?-?-?-?- 20w 3d 170 lb 2 oz (+2 lb 2 oz) 130/80 Negative -?-?-?-?-?-?-?-?-?-?-?-?- Negative 146 20 -?-?-?-?-?-?-?-?-?-?-?-?- MH-No VB, LOF. G ood FM. Missed last 2 appt and US. Sched today at [facility] for anatomy US. Still using marijuana in gummies. Enc cessation. 08/30/21 -?-?-?-?-?-?-?-?-?-?-?-?- 24w 5d 175 lb 2 oz (+7 lb 2 oz) 114/60 Negative -?-?-?-?-?-?-?-?-?-?-?-?- Negative 145 -?-?-?-?-?-?-?-?-?-?-?-?- -SM- no vb lof g ood fm no ctx 09/27/21 -?-?-?-?-?-?-?-?-?-?-?-?- 28w 5d 170 lb (+2 lb) 110/80 Negative -?-?-?-?-?-?-?-?-?-?-?-?- Negative 145 28 -?-?-?-?-?-?-?-?-?-?-?-?- SM- no vb lof go od fm no reuglar ctx 10/15/21 -?-?-?-?-?-?-?-?-?-?-?-?- 31w 2d 172 lb 8 oz (+4 lb 8 oz) 116/80 Negative -?-?-?-?-?-?-?-?-?-?-?-?- Negative 135 31 -?-?-?-?-?-?-?-?-?-?-?-?- JV- pt is having some bleeding after intercourse. today there is old blood in vault. cx is closed. precautions discussed. plan for 36 week growth scan with mfm. pt is a smoker and poor weight gain, choroid plexus cyst. 10/29/21 -?-?-?-?-?-?-?-?-?-?-?-?- 33w 2d 177 lb 7.554 oz (+9 lb 7.554 oz) 111/67 126/70 121/83 127/62 30 mg/dl (Negative) H -?-?-?-?-?-?-?-?-?-?-?-?- -?-?-?-?-?-?-?-?-?-?-?-?- NST FHR Rate Baby A Baseline: 130 Variability:: Moderate Accelerations:: 15 x 15 Decelerations:: None NST Reactive:: Yes FHR Category:: Category I Uterine Activity:: no regular ROS Constitutional Constitutional: Reports systems reviewed and no addt'l complaints, except as documented ENT HEENT: Reports systems reviewed and no addt'l complaints, except as documented Cardiovascular Cardiovascular: Reports systems reviewed and no addt'l complaints, except as documented Respiratory/Chest Respiratory/Chest: Reports systems reviewed and no addt'l complaints, except as documented Gastrointestinal Gastrointestinal: Reports systems reviewed and no addt'l complaints, except as documented and nausea; Denies abdominal pain Genitourinary Genitourinary: Reports systems reviewed and no addt'l complaints, except as documented, contractions Details: present and frequency (regular ) and movement Details: present Musculoskeletal Musculoskeletal: Reports systems reviewed and no addt'l complaints, except as documented Integumentary Integumentary: Reports as per HPI Neurologic Neurologic: Reports systems reviewed and no addt'l complaints, except as documented Endocrine Endocrinology: Reports systems reviewed and no addt'l complaints, except as documented Vital Signs Vital Signs Vital Signs: 10/28/21 19:46 10/28/21 19:51 10/28/21 19:56 Temperature Temperature Source Pulse Rate 106 H 87 85 Blood Pressure BP Systolic BP Diastolic Pulse Ox 98 98 97 10/28/21 19:58 10/28/21 20:01 10/28/21 20:04 Temperature 97.3 F L Temperature Source Temporal Pulse Rate 78 Blood Pressure 111/67 BP Systolic 111 BP Diastolic 67 Pulse Ox 10/28/21 21:48 10/28/21 22:26 10/28/21 23:40 Temperature 97.9 F 96.9 F L Temperature Source Temporal Temporal Pulse Rate 79 73 Blood Pressure 126/70 H BP Systolic 126 BP Diastolic 70 Pulse Ox 100 98 10/28/21 23:42 10/29/21 01:53 10/29/21 01:58 Temperature Temperature Source Pulse Rate 80 83 66 Blood Pressure 121/83 H BP Systolic 121 BP Diastolic 83 Pulse Ox 98 97 10/29/21 02:08 10/29/21 03:46 10/29/21 03:47 Temperature 97.2 F L Temperature Source Temporal Pulse Rate 63 65 Blood Pressure 127/62 H BP Systolic 127 BP Diastolic 62 Pulse Ox 99 100 10/29/21 03:48 Temperature Temperature Source Pulse Rate 62 Blood Pressure BP Systolic BP Diastolic Pulse Ox 93 Weight Weight: 177 lb 7.554 oz Body Mass Index (BMI) 28.6 Physical Exam Const alert, oriented x3 and healthy appearing Constitutional Narrative: uncomfortable with contractions HEENT normocephalic and moist oral mucous membranes Head and Scalp: atraumatic Neck full ROM, no lymphadenopathy, supple and thyroid normal General: trachea midline Thyroid: thyroid normal Lymph Lymphatic: no lymphadenopathy noted Chest inspection of chest normal Resp normal respiratory effort Cardio regular rate GI normal to inspection, nondistended, normoactive bowel sounds, soft to palpation and non-tender Inspection: gravid external exam normal Bimanual Exam - Vag & Uterus: uterus non-tender Manual OB Exam: estimated gestational size appropriate, dilated 0, effaced 0 and station high Extremity normal to inspection General Extremity: Negative for edema Skin no rashes or lesions noted Neuro deep tendon reflexes 2+ bilaterally Motor Exam: strength 5/5 throughout and clonus absent Psych mental status grossly normal Labs Labs Labs: Blood Type A POSITIVE Antibody Screen NEGATIVE Hct 33.4 % (37-47) L Hgb 11.1 g/dL (12.0-15.0) L Pap Smear Positive Obstetrics US Syphilis Total Ab Non-reactive Rubella IgG Antibody Reactive (Nonreactive) Hep Bs Antigen Non-Reactive (Nonreactive) Neisseria gonorrhoeae DNA (LISANDRA) Negative (Negative) HIV 1&2 Antibody Non-Reactive (Nonreactive) C.trachomatis DNA (PCR) Negative (Negative) Glucose 1 Hr 50 gm 117 mg/dL (70-140) Group B Strep DNA Negative (Negative) Rhogam given: No Miscellaneous Test Assessment & Plan (1) Genital HSV: COMMENT: acyclovir started due to ROM. no active lesions or symptoms. (2) Hx gestational diabetes: COMMENT: nl 1h GCT at [facility], nl 28 week testing (3) Choroid plexus cyst of fetus: COMMENT: noted on anatomy scan. NIPT low risk (4) Hx of pre-eclampsia in prior , currently : COMMENT: 81mg asa (5) History of delivery: COMMENT: planning RLTCS (6) Supervision of normal : QUALIFIERS: Normal : other normal Trimester: first trimester Qualified Code(s): Z34.81 - Encounter for supervision of other normal , first trimester COMMENT: PRR INGE 12/15/21 girl Citlali JOSE Rousseau,Mohamud boyfriend Anthony (7) : QUALIFIERS: Weeks of gestation: 31 weeks Qualified Code(s): Z3A.31 - 31 weeks gestation of COMMENT: Prior nl carrier screen. nl NIPT. anatomy reviewed (8) Tobacco use during : COMMENT: encouraged cessation (9) Depression with anxiety: COMMENT: was on latuda - psychiatry recommends continuing during , patient stopped taking. (10) History of marijuana use: COMMENT: incarcerated in past for this, doing well. encouraged cessation. +THC at [facility] (11) premature rupture of membranes (PPROM) delivered, current hospitalization: COMMENT: no signs of triple I at this time. gent, clinda, azithro for latency. switch to oral antibiotics after 48 hours. plan delivery at 34 unless other materanal/ indications develop (12) Vaginal bleeding during : COMMENT: serial cbc and fibrinogen ordered. reassuring FHT, ctx felt per patient q 5-15. no cervical change. formal US this am. NPO for now, LR at 125 (13) COVID-19 affecting , antepartum: COMMENT: symptom onset 10/23 with pos covid test upon admission 10/28. mild symptoms. Charges/Coding Multi Select Codes Visit Charges Visit Charges: 04485 Init Hosp L3 Urinary/Genital Urinary/Genital CPT Codes: 32356-19 non-stress test Interp
[2021-10-29] MEDS: Acyclovir 800 MG Tablet PO (06:43)
[2021-10-29] MEDS: Sodium Citrate/Citric Acid 30 ML UDC PO (08:54)
[2021-10-29 08:58] LABS: BUP Internal Control LINE = VALID (VALID); Buprenorphine Drug Screen Negative (<10 ng/mL)
[2021-10-29 09:08] LABS: Absolute Lymphocyte Count 1.33 X10^3/uL (0.83-4.51); Absolute Neutrophil Count 7.2 X10^3/uL (2.0-7.7); Basophil# 0.01 X10^3/uL; Basophil% 0.1 % (0-1); Hematocrit 32.4 % (37-47); Hemoglobin 10.6 g/dL (12.0-15.0); Lymphocyte # 1.33 X10^3/ul (0.83-4.51); Lymphocyte % 15.2 % (19-41); Mean Corp Hgb Conc 32.7 g/dL (32-36); Mean Corpuscular Volume 88.8 fL (81-99); Monocyte% 2.3 % (0-10); NRBC Flagged by Analyzer 0 % (0-5); Neutrophil # 7.18 X10^3/uL (2.7-7.7); Neutrophil % 81.8 % (47-70); Platelet Count 255 K/mm3 (150-450); RBC Distribution Width CV 12.3 % (11.6-14.6); RBC Distribution Width SD 39.9 fl (35.1-43.9); Red Blood Count 3.65 M/mm3 (4.2-5.4); White Blood Count 8.8 K/mm3 (4.4-11.0)
[2021-10-29 09:17] LABS: Fibrinogen 638 mg/dl (203-444)
[2021-10-29 09:21] LABS: Amphetamine Urine VISTA NEGATIVE (<1000 ng/mL); Barbiturate Urine VISTA NEGATIVE (< 200 ng/mL); Benzodiazepine Urine VISTA NEGATIVE (< 200 ng/mL); Cocaine Urine VISTA NEGATIVE (< 300 ng/mL); Ecstacy Urine VISTA NEGATIVE (< 500 ng/mL); Methadone Urine VISTA NEGATIVE (< 300 ng/mL); PCP Urine VISTA NEGATIVE (< 25 ng/mL); THC Urine VISTA POSITIVE (< 50 ng/mL); Vista UDS pH Range 6
--- NOTE | 2021-10-29 10:00 | US_ITS ---
STUDY: SECOND AND THIRD TRIMESTER OBSTETRICAL ULTRASOUND - LIMITED REASON FOR EXAM: Female, 31 years old EVALUATION OF GROWTH AND FLUID LMP: 03/10/2021. PRIOR ULTRASOUND: Comparison is made with prior study dated 07/31/2021. TECHNIQUE: Transabdominal and Transvaginal TECHNICAL QUALITY: Adequate. FINDINGS: There is a single intrauterine fetus. The fetus is in a cephalic presentation. There is demonstrated cardiac activity with a heart rate of 143 bpm. There is a normal amniotic fluid volume. The largest amniotic fluid pocket measures 4.83 cm. The amniotic fluid index (LION) is 13.75 cm. The placenta is anterior with a complete previa. There are Grade 2 placental changes. The cervix measures 4 cm in length. BIOMETRY: BPD: 8.07 cm: 32 weeks, 3 days HC: 29.26 cm: 32 weeks, 2 days AC: 28.75 cm: 32 weeks, 6 days FL: 6.23 cm: 32 weeks, 2 days Age by LMP: 33 weeks, 2 days. INGE by LMP: 12/15/2021. age by prior US: 32 weeks, 4 days. INGE by prior US: 12/20/2021. age by current US: 32 weeks, 4 days. INGE by current US: 12/20/2021. Estimated weight: 1995 grams, +/- 291 grams, 21 percentile. IMPRESSION: Single live intrauterine gestation with mean gestational age of 32 weeks and 4 days. Complete anterior placenta previa with prominent mucous plug. Electronically Signed: Jeff Ignacio MD at 9:15 EST , Service support , STUDY: FIRST TRIMESTER OBSTETRICAL ULTRASOUND REASON FOR EXAM: Female, 31 years old EVALUATION OF PLACENTA. LMP: 03/10/2021. TECHNIQUE: Transvaginal TECHNICAL QUALITY: Adequate. PRIOR ULTRASOUND: None. FINDINGS: Complete anterior placenta previa. US/OB Limited With Biometrics IMPRESSION: Complete anterior placenta previa. Electronically Signed: Jeff Ignacio MD at 9:15 EST , Service support ,
--- NOTE | 2021-10-29 10:12 | PCM.PN.BLA ---
Progress Note It was found that on a previous operative report the placenta was not fundal as previously reported but was a placenta previa. Upon repeat ultrasound evaluation the placenta still is a complete previa and anterior. Decision to proceed with immediate repeat low transverse . Patient consented for possible hysterectomy if placenta accreta is encountered. Type and cross for 2 units. Second IV started.
[2021-10-29] MEDS: Methylergonovine 0.2 MG/ML Ampul IM (10:57)
--- NOTE | 2021-10-29 11:38 | PLAC_PTH ---
PATIENT: STEVE ACEVEDO LOC: WP U#:[id number] AGE/SX: 31/F ROOM: WP011 RE10/29/[address]: Dr. Sherley Houston MD : 1990 BED: 1 DIS: 10/31/2021 SPEC #: [id number] RECD: 10/29/21 14:11 STATUS: CAMELIA RAISA #: [id number] BILL: 10/29/21 11:[address]: Sherley Houston DEPT: SURGICAL PATHOLOGY RECD BY: Bernice Oakley ENTERED: 10/30/21 09:36 SP TYPE: PLACENTA OTHR DR: Becky Primary Care Phys Tissues: A - Placenta, NOS B - Uterus, NOS Procedures: Surgery Specimen Level V HEADER OPERATION: section, hysterectomy PRE-OP DIAGNOSIS: Complete previa, suspect accreta TISSUE SUBMITTED: A ? Placenta, B - Uterus MICROSCOPIC DIAGNOSIS A. Placenta: Placental disc - third trimester placenta (395 gm) with a succenturiate lobe. - Succenturiate lobe with extensive infarction (6 cm in greatest dimension). - Focal areas of intraparenchymal hemorrhage and smaller areas of infarction. Membranes - no pathologic diagnosis. Umbilical cord - three blood vessels and a few false knots. B. Uterus, hysterectomy and bilateral salpingectomy: Cervix ? chronic cystic cervicitis. See comment. Endometrium ? extensive area of placental tissue adherent to uterine wall, consistent with placenta accreta. Myometrium - no pathologic diagnosis. Bilateral fallopian tubes - no pathologic diagnosis. See comment. SJ:rg 10/31/2021 COMMENT B. Only section of anterior cervix shows small portion of ectocervical mucosa. Section of posterior cervix do not show any ectocervical mucosa. No evidence of placental tissue in the myometrium (placenta increta) is noted. Sections of both anterior and posterior uterine wall show adherent placental tissue. Case has been reviewed in consultation with Dr. Baltazar who concurs with the above diagnosis. IDC:AM MICROSCOPIC DESCRIPTION Slides are reviewed. GROSS DESCRIPTION A - SPECIMEN: PLACENTA / CLINICAL INFORMATION: A. Weight: 1.755 kg B. Gestational Age: 33 weeks C. Sex: Female PLACENTAL WEIGHT (POST FIXATION): 395 gm PLACENTAL DIMENSIONS: The largest piece of the placenta measures 19 x 15 x 5 cm. Three smaller detached pieces are also noted measuring in aggregate 7 x 6 x 2 cm. A succenturiate lobe is also noted measuring 6 x 4 x 1 cm. PLACENTAL SHAPE: The body of the placenta is markedly disrupted. PLACENTAL WEIGHT FOR GESTATIONAL AGE: Within 10-99th percentile MEMBRANES - Present A. Insertion: Marginal B. Site of rupture from edge: The membranes are fragmented and distance of rupture cannot be assessed. C. Color of membrane: Casillas-gutierrez D. Abnormalities: None UMBILICAL CORD - Present A. Color: Casillas-gutierrez B. Insertion: The umbilical cord is inserted in the membranes, 1 cm away from the edge of the placenta (velamentous insertion) C. Length: 14 cm D. Diameter: 1.5-2.5 cm E. Number of vessels: Three F. Abnormalities: A few false knots are noted. The area close to the end shows a false knot. PLACENTAL DISC - Present A. Color of surface: Casillas-gutierrez B. surface abnormalities: None C. Maternal cotyledons: The maternal surface is markedly disrupted. D. Attached retro placental clot: No clot E. Cut surface: Dark red and spongy F. Lesions: The succenturiate lobe reveals casillas, solid cut surfaces. Sections through the detached piece of placenta show casillas, indurated and hemorrhagic area, largest measuring 2 cm in greatest dimension. Sections of the largest piece of placenta reveal a casillas, indurated area measuring 1 cm in greatest dimension. G. Separate clot: Absent SECTIONS SUBMITTED: 1. Membrane roll 2. Cord, maternal end 3. Cord, end 4. Succenturiate lobe 5. Succenturiate lobe 6. Indurated area and detached pieces of tissue 7. Indurated area and detached pieces of tissue 8. Largest piece of placenta, lesion 9. Largest piece of placenta 10. Largest piece of placenta B - Received in fixative is one container labeled with the patient's name and designated uterus. The specimen consists of a hysterectomy specimen consisting of uterus with cervix and attached bilateral fallopian tubes. The uterus with cervix weighs 343 gm and measures 17 x 12 x 6 cm. The serosal surface is focally ragged. The anterior uterine wall shows a large defect in the lower portion consistent with section incision measuring 8 cm in greatest dimension. The os is circular in contour. The endocervical canal measures 4 cm in length and endocervical mucosa is casillas, glistening and unremarkable. The endometrial cavity is saucer-shaped and measures 11 cm in length and up to 6 cm in width. The endometrium is ragged, congested and focally hemorrhagic. No obvious placental tissue is identified. The endometrium measures up to 0.3 cm in thickness. Sections of uterine wall do not reveal any mass lesion and measures up to 2.5 cm in thickness. The right fallopian tube measures 6.5 cm in length and up to 0.5 cm in diameter. The fimbrial end is identified. Sections reveal unremarkable cut surfaces. The left fallopian tube is similar appearance to right and measures 6 cm in length and 0.5 cm in diameter. Also present in the container are multiple blood clots measuring in aggregate 9.5 x 6 x 1.5 cm and weighing 24 gm. Stone Driller Helper sections are submitted in ten cassettes as follows: 1??anterior cervix, 2??posterior cervix, 3-5 - posterior uterine wall, 6-8 - anterior uterine wall (cassettes 7?& 8 contain the area adjacent to the defect in the anterior uterine wall), 9 - right fallopian tube, 10 - left fallopian tube. / MELINDA:lalo 10/30/2021 TC:5 CPT: 06133 x2
[2021-10-29] MEDS: Lactated Ringers 1,000 ML 100 ML IV (12:00)
--- NOTE | 2021-10-29 12:10 | OP.PCM_ITS ---
Assessment & Plan (1) COVID-19 affecting , antepartum: COMMENT: symptom onset 10/23 with pos covid test upon admission 10/28. mild symptoms. (2) Vaginal bleeding during : COMMENT: serial cbc and fibrinogen ordered. reassuring FHT, ctx felt per patient q 5-15. no cervical change. formal US this am. NPO for now, LR at 125 (3) premature rupture of membranes (PPROM) delivered, current hospitalization: COMMENT: no signs of triple I at this time. gent, clinda, azithro for latency. switch to oral antibiotics after 48 hours. plan delivery at 34 unless other materanal/ indications develop (4) Choroid plexus cyst of fetus: COMMENT: noted on anatomy scan. NIPT low risk (5) Hx gestational diabetes: COMMENT: nl 1h GCT at [facility], nl 28 week testing (6) Hx of pre-eclampsia in prior , currently : COMMENT: 81mg asa (7) Genital HSV: COMMENT: acyclovir started due to ROM. no active lesions or symptoms. (8) Depression with anxiety: COMMENT: was on latuda - psychiatry recommends continuing during , patient stopped taking. (9) History of delivery: COMMENT: planning RLTCS (10) History of marijuana use: COMMENT: incarcerated in past for this, doing well. encouraged cessation. +THC at [facility] (11) Tobacco use during : COMMENT: encouraged cessation (12) Supervision of normal : QUALIFIERS: Normal : other normal Trimester: first trimester Qualified Code(s): Z34.81 - Encounter for supervision of other normal , first trimester COMMENT: PRR INGE 12/15/21 girl Citlali JOSE Rousseau,Mohamud boyfriend Anthony (13) : QUALIFIERS: Weeks of gestation: 31 weeks Qualified Code(s): Z3A.31 - 31 weeks gestation of COMMENT: Prior nl carrier screen. nl NIPT. anatomy reviewed (14) Delivery by hysterectomy: (15) Placenta accreta: COMMENT: with complete previa (16) Circumvallate placenta: (17) Placental abruption in third trimester: (18) hemorrhage: COMMENT: sec accreata Maternal Data Information INGE Calculator Estimated Delivery Date Method Current WG Current Estimate 12/15/21 Ultrasound #1 33w 2d Other Estimates 12/22/21 LMP (Uncertain) 32w 2d Details Operative Information Date of Procedure: 10/29/21 Pre-Operative Diagnosis: see problem list Post-Operative Diagnosis: same plus accreata Indications for : Repeat Elective , Placenta Previa and Suspected Abruptio Placenta Indications Narrative: pprom, vaginal bleeding Classification: AMALIA Procedure Type: - ( hysterectomy and bilateral salpingectomy) spindle frame carver #1: Haritha Underwood Type of Anesthesia: Spinal Special Medications: tranexamic acid, methergine Antibiotic Given: Clindamycin 600mg IV x1 and Gentamicin 1.5mg/kg IV x1 and - (azithromycin 1 g given the night before) Drain: Riggs to straight drain Estimated Blood Loss: 1200 Fluids Replaced: crystalloid Findings Description of Procedure: 31-year-old at 33 weeks 2 days presents with P PROM and vaginal bleeding. She was diagnosed with COVID upon admission but had previously reported some symptoms starting 6 days prior. Upon evaluation she was found to have a complete placenta previa on ultrasound. Decision was made to proceed with immediate repeat low transverse . Spinal anesthesia was placed without complication and then patient was laid in the dorsolithotomy position prepped and draped in a sterile fashion. Pfannenstiel skin incision was made and carried through to the underlying layer of fascia with the Bovie fascia nicked in the midline incision extended laterally. Rectus muscles were dissected superiorly and inferiorly off the anterior rectus sheath without complication. Peritoneum entered digitally incision stretched laterally. The lower uterine segment was noted to be translucent and visibly abnormal with increased vasculature and abnormal placentation seen. Bladder flap was created taking down the vesicouterine adhesions. Incision was made above what appeared to be where the placenta was attached however placenta was still encountered and the 's head was delivered through the placenta. Delayed cord clamping was employed the was bulb suctioned at delivery. Infant passed off for evaluation by the remote broadcast engineer. The placental uterine interface was then examined and the insertion of the cord was noted to be fundal however the entire placenta covered at least three quarters of the endometrial surface area as in a circumvallate placenta. The portion covering the cervix was abnormally grown in and a small abruption was noted. It was attempted to remove the placenta from the uterus however there were areas in multiple places particularly in the anterior lower uterine segment that appeared to be grown into the uterus as in a placenta accreta and were unable to be removed. Significant bleeding was noted from all these different areas. The decision was made to proceed with hysterectomy and the other physician Dr. Chapman operating with de agreed with this decision. This was discussed with the patient and her and they both agreed to proceed do to the lifesaving emergency. Using the LigaSure device the fallopian tubes were removed after ligating the mesosalpinx bilaterally. The utero-ovarian ligaments were transected with the LigaSure device and the uterine vessels skeletonized and cauterized and cut with the LigaSure device. This was progressively done down to the level of the uterine arteries which were burned and cut bilaterally. The bladder was further dissected off the lower uterine segment and Z-Clamp's were placed underneath as low as possible attempting to remove the cervix with the uterus. Uterus was amputated using Antoine scissors and then the vaginal cuff oversewn with 0 Vicryl sutures. Excellent hemostasis was noted other than some raw appearing cuff bed which was treated with Floseal and noted to be hemostatic. All instruments were removed from the patient and the peritoneum was closed with 3-0 Monocryl fascia closed with 0 PDS strata fix suture. Subcutaneous tissue reapproximated with 3-0 Monocryl and skin closed with 4-0 Monocryl. Silver Mepilex applied and patient taken recovery in stable condition. Presentation: Positive for Vertex Amniotic Membrane Rupture Type: Spontaneous Amniotic Fluid Description: Bloody Placental Delivery Description: Manual Removal and Retained Placenta Disposition: Sent to Pathology Percentage of Placenta Abruption: 5 Specimen(s) Sent to Pathology: yes placenta and uterus Cord Vessel Description: 3 Vessels Cord Entanglement: None Infant A Gender: Female Delayed Cord Clamping: Yes Complications Risks of Surgery Discussed w/Patient: Bleeding, Anesthesia Risks, Infection, Need for Future C-Sections, Permanency, Failure Rate of 1 to 2%, Injury to surrounding structure(s) including bowel and bladder, Availability of other non- permanent control options and - (risk of hysterecotmy) Complications: PPH sec to accreata, decision for hysterectomy
[2021-10-29] MEDS: Ketorolac 30 MG/ML Syringe IV ×2 (12:53→18:45)
[2021-10-29 14:11] LABS: Pathology Specimen OB SEE PATHOLOGY REPORT
[2021-10-29 15:14] LABS: Absolute Lymphocyte Count 1.38 X10^3/uL (0.83-4.51); Absolute Neutrophil Count 12.4 X10^3/uL (2.0-7.7); Basophil# 0.02 X10^3/uL; Basophil% 0.1 % (0-1); Hematocrit 28.4 % (37-47); Hemoglobin 9.6 g/dL (12.0-15.0); Lymphocyte # 1.38 X10^3/ul (0.83-4.51); Lymphocyte % 9.8 % (19-41); Mean Corp Hgb Conc 33.8 g/dL (32-36); Mean Corpuscular Hgb 29.7 pg (27.0-32.0); Mean Corpuscular Volume 87.9 fL (81-99); Mean Platelet Vol. 11.7 fl (6.2-12.0); Monocyte# 0.19 X10^3/uL; Monocyte% 1.3 % (0-10); NRBC Flagged by Analyzer 0 % (0-5); Neutrophil # 12.42 X10^3/uL (2.7-7.7); Neutrophil % 88.3 % (47-70); POSITIVE MORPHOLOGY YES; Platelet Count 236 K/mm3 (150-450); RBC Distribution Width CV 12.5 % (11.6-14.6); RBC Distribution Width SD 40.3 fl (35.1-43.9); Red Blood Count 3.23 M/mm3 (4.2-5.4); White Blood Count 14.1 K/mm3 (4.4-11.0)
[2021-10-29 15:19] LABS: Differential Indicated SCAN CRITERIA MET
[2021-10-29 16:00] LABS: Anisocytosis RARE; Platelet Estimate ADEQUATE (ADEQ); Red Cell Morphology N CHROM NORMAL (NORM C&C)
[2021-10-29] MEDS: 0.9% Saline Lock 10 ML Syringe IV (18:45)
[2021-10-30] VITALS (33 sets, daily range): BP systolic 101–146; BP diastolic 59–97; PULSE 48–96; RESP 14–18; TEMP 36.2–36.7; O2SAT 97–100
[2021-10-30] MEDS: 0.9% Saline Lock 10 ML Syringe IV ×2 (02:05→05:33)
[2021-10-30] MEDS: Ketorolac 30 MG/ML Syringe IV (02:05)
[2021-10-30] MEDS: Acetaminophen 500 MG Tablet 1000 MG PO ×4 (02:43→22:44)
[2021-10-30 05:10] LABS: Hematocrit 21.8 % (37-47); Hemoglobin 7.1 g/dL (12.0-15.0); Mean Corp Hgb Conc 32.6 g/dL (32-36); Mean Corpuscular Hgb 29.1 pg (27.0-32.0); Mean Corpuscular Volume 89.3 fL (81-99); Mean Platelet Vol. 11.9 fl (6.2-12.0); Platelet Count 212 K/mm3 (150-450); RBC Distribution Width CV 12.5 % (11.6-14.6); RBC Distribution Width SD 40.5 fl (35.1-43.9); Red Blood Count 2.44 M/mm3 (4.2-5.4); White Blood Count 10.2 K/mm3 (4.4-11.0)
[2021-10-30] MEDS: Lactated Ringers 1,000 ML 999 ML IV (05:33)
--- NOTE | 2021-10-30 06:09 | PCM.PN.OB ---
Subjective Subjective Patient doing well without complaints. Tolerating PO. Ambulating and voiding without difficulty. pumping. Denies chest pain, shortness of breath, calf pain/swelling, fevers, chills, lightheadedness. Objective Data Objective Data Vital Signs: Vital Signs Temp Pulse Resp BP Pulse Ox 97.6 F L 54 L 18 109/59 L 98 10/30/21 05:00 10/30/21 05:00 10/30/21 05:00 10/30/21 05:00 10/30/21 05:00 Oxygen Delivery Method Room Air Weight: 177 lb 7.554 oz Body Mass Index (BMI) 28.6 Intake & Output: Intake and Output for Last 24 Hours 10/28/21 10/29/21 10/30/21 23:59 23:59 23:59 Intake Total 166 / 166 1432.67 / 1432.67 Output Total 450 / 450 400 / 400 Balance 166 / 166 982.67 / 982.67 -400 / -400 Lab / Micro Data Result Diagrams: 10/30/21 05:00 Labs: Laboratory Results - last 24 hr 10/28/21 21:00: Crossmatch See Detail 10/28/21 21:00: Crossmatch See Detail 10/29/21 08:40: Urine Opiates Screen NEGATIVE, Urine Methadone Screen NEGATIVE, Ur Barbiturates Screen NEGATIVE, Ur Phencyclidine Scrn NEGATIVE, Ur Amphetamines Screen NEGATIVE, U Methamphetamin-MDMA NEGATIVE, U Benzodiazepines Scrn NEGATIVE, Urine Cocaine Screen NEGATIVE, U Cannabinoids Screen POSITIVE H, Ur Drug Screen Comment 10/29/21 08:40: Ur Buprenorphine Scrn Negative, Ur Drug Screen Comment 10/29/21 08:50: WBC 8.8, RBC 3.65 L, Hgb 10.6 L, Hct 32.4 L, MCV 88.8, MCH 29.0, MCHC 32.7, RDW Std Deviation 39.9, RDW Coeff of Karmen 12.3, Plt Count 255, MPV 12.0, Immature Gran % (Auto) 0.600, Neut % (Auto) 81.8 H, Lymph % (Auto) 15.2 L, [place] % (Auto) 2.3, Eos % (Auto) 0.0, Baso % (Auto) 0.1, Absolute Neuts (auto) 7.2, Absolute Lymphs (auto) 1.33, Nucleated RBC % 0 10/29/21 08:50: Fibrinogen 638 H 10/29/21 15:05: WBC 14.1 H, RBC 3.23 L, Hgb 9.6 L, Hct 28.4 L, MCV 87.9, MCH 29.7, MCHC 33.8, RDW Std Deviation 40.3, RDW Coeff of Karmen 12.5, Plt Count 236, MPV 11.7, Immature Gran % (Auto) 0.500, Neut % (Auto) 88.3 H, Lymph % (Auto) 9.8 L, [place] % (Auto) 1.3, Eos % (Auto) 0.0, Baso % (Auto) 0.1, Absolute Neuts (auto) 12.4 H, Absolute Lymphs (auto) 1.38, Nucleated RBC % 0, Platelet Estimate ADEQUATE, RBC Morphology N CHROM, Anisocytosis RARE 10/30/21 05:00: WBC 10.2, RBC 2.44 L, Hgb 7.1 L, Hct 21.8 L, MCV 89.3, MCH 29.1, MCHC 32.6, RDW Std Deviation 40.5, RDW Coeff of Karmen 12.5, Plt Count 212, MPV 11.9 Micro: Microbiology 10/28/21 21:32 Nasal Secretion SARS-CoV-2 Antigen (Rapid) - Final SARS-CoV-2 (COVID 19) Radiography Diagnostic Testing: Radiology Impression Obstetrics Ultrasound 10/29/21 10:00 IMPRESSION: Complete anterior placenta previa. Electronically Signed: Jeff Ignacio MD at 9:15 EST , Service support , ROS Constitutional Constitutional: Reports systems reviewed and no addt'l complaints, except as documented Cardiovascular Cardiovascular: Reports systems reviewed and no addt'l complaints, except as documented Respiratory/Chest Respiratory/Chest: Reports systems reviewed and no addt'l complaints, except as documented Gastrointestinal Gastrointestinal: Reports systems reviewed and no addt'l complaints, except as documented Physical Exam Const alert, oriented x3 and no apparent distress HEENT Head and Scalp: atraumatic Resp normal respiratory effort GI soft to palpation and non-tender Inspection: incision intact, healing well and drainage (none) Bimanual Exam - Vag & Uterus: uterus non-tender Uterus Palpation: uterus fundus firm (below Umbilicus) Assessment & Plan (1) hemorrhage: COMMENT: sec accreata (2) Placental abruption in third trimester: (3) Circumvallate placenta: (4) Placenta accreta: COMMENT: with complete previa (5) Delivery by hysterectomy: (6) COVID-19 affecting , antepartum: COMMENT: symptom onset 10/23 with pos covid test upon admission 10/28. mild symptoms. (7) premature rupture of membranes (PPROM) delivered, current hospitalization: COMMENT: no signs of triple I at this time. gent, clinda, azithro for latency. switch to oral antibiotics after 48 hours. plan delivery at 34 unless other materanal/ indications develop (8) History of delivery: COMMENT: planning RLTCS (9) Acute postoperative anemia due to greater than expected blood loss: COMMENT: transfuse 2 units, 2 units on hold. check cbc 4 hours post transfusion PLAN: s/p c hyst PPD # 1 1. routine post care 2. pumping breast milk 3. rh positive 4. rubella immune see PL details for additional A/P information
[2021-10-30] MEDS: Ibuprofen 600 MG Tablet PO ×2 (07:59→19:39)
[2021-10-30] MEDS: oxyCODONE 5 MG Tablet PO ×2 (07:59→16:31)
[2021-10-30] MEDS: Famotidine 20 MG Tablet PO (09:45)
--- NOTE | 2021-10-30 12:30 | CM.ED ---
Social Work Assessment Labor and Delivery Unit Date of Referral: 10/29/2020 Referred By: Dr. Carcamo Date of Intervention: 10/30/2020 Time of Intervention: 12:30 Reason for Referral: Baby transfer to [facility]. Mother of baby (MOB) with positive tox screen for marijuana. History obtained from: MOB, chart review, nursing staff. Household composition: MOB lives with alleged father of baby (FOB), Caio Carpenter in a ?room we rent.? MOB reports to rent a room ?from our boss.? MOB reports to have shared kitchen and bathroom with other housemates. MOB and FOB currently live at this address: [address] [place] [address]. Patient's parent/guardian status: MOB and FOB have been together for 7 years. This is third child that MOB and FOB have had together. MOB?s other children are Jose Carpenter age 5 and Mohamud Carpenter age 22months. MOB reports that was not avoided. FOB has two other children outside of the three children that FOB has had with MOB. Neither MOB nor FOB have custody of any of their children. Jose and Mohamud are currently in the custody of FOB?s mother, Alexa Carpenter. MOB reports to have lost custody of children three months ago due to homelessness, but to now have housing. MOB also mentions that ?they used my mental health against me? as reason for why children were removed from home. MOB reports ?I hope to get them back someday? and states to have signed over custody. MOB reports to see Mohamud ?a lot? and to not be able to see Jose as much as ?she is in school now.? Medical History: MOB reports history of c-sections with other pregnancies and had a with this , Citlali Carpenter that resulted in a hysterectomy as well. MOB reports to have not wanted the hysterectomy but understood the medical reason for the procedure. MOB reports history of Depression, Anxiety, ADHD, and Bi-polar. MOB also COVID-19 positive. Infant born on 10/29/2019 at 33 gestational age and was sent to [facility]. Current COVID-19 policy for [facility] is that if a person is COVID-19 positive they are not able to see infant until 10 days out. MOB plans to breastfeed infant and has been pumping. Educational Status: MOB reports to have completed high school. MOB denies any issues/concerns with learning or comprehension. Financial Status: FOB currently works for ?[employer]? building shelving units. MOB reports to have been working with FOB prior to but stopped working due to . Supplies: MOB reports to have all needed infant supplies including a crib and car seat. Childcare/Caregiver(s): MOB reports plan to be infant main caregiver. Transportation: MOB denies transportation issues. Programs/Agencies Involved: MOB active with [employer] for medical and food stamps. MOB with history of WIC services and is aware of how to set this up if MOB finds a need for this. Children Services/Legal Issues: MOB reports that children services of [facility] removed both Jose and Mohamud from the custody of MOB and FOB due to homelessness three months ago. MOB reports that case is no longer open. MOB denies any other legal issues/concerns. MOB reports plan/intent to attempt to obtain custody of Jose and Mohamud again as MOB now has housing. Behavioral Health Issues: Mental Health History: MOB reports history of ADHD, Anxiety, Depression, and Bi-polar. MOB reports history of inpatient psychiatric placement with last placement being three months ago due to MOB having suicidal thoughts with plan to complete suicide. ?I just wanted to .? MOB reports to now be ?better.? MOB denies any current medications to manage mental health but ?I know when to talk to my doctor.? Patient denies any active counseling services but a history of. MOB denies active suicidal thoughts, plans, intents. MOB reports history of Depression (PPD) with Jose but ?I got through it.? MOB engaged in conversation with this social work case manager about signs and symptoms of PPD in the event that MOB had PPD again. MOB denies any mental health concerns for FOB. Substance Use History: MOB admits to using ?CBD,? I guess I didn?t realize it had actual marijuana in it.? MOB reports that both MOB and FOB smoke tobacco daily. MOB reports to be down to ? pack per day from patient 2 packs per a day 5 years ago. Maternal and Infant Drug Screens: MOB with positive tox screen for THC on 05/15/2021 and 10/29/2021. Unable to obtain tox screen for infant as infant was discharged to [facility] main [facility] right after . PHQ9: MOB did not trigger. Family/Social Stressors: MOB able to identify multiple stressors including being transferred to [facility], MOB being positive for COVID-19 and unable to visit until after 10 days, and concerned about possible children services case and loosing custody of this infant, Citlali. Support Systems: MOB able to identify family as supportive. Depression and Anxiety/Shaken Baby/Safe Sleeping: This social work case manager provided MOB with information on PPD and Anxiety as well as shaken baby and safe sleeping. This social work case manager did not bring a resource list for Frances as per chart patient address was [place]. Social work to follow up on resource list as needed. MOB did respond appropriately to prompts for safe sleeping and shaken baby. ASSESSMENT: This social work case manager met with MOB in room. Introduced self and social work case manager role. MOB agreeable to speak with this social work case manager. FOB not currently present. MOB sitting up in bed with pleasant and engaged affect. MOB reports to have been able to look at but to have not been able to see as infant ?left so fast.? MOB reports that ?it is going to take some time? to get use to the idea that MOB ended up with a hysterectomy. MOB states ?I wasn?t ready for that yet.? MOB reports that while none of MOB?s pregnancies were planned, I might have wanted more. MOB able to maintain appropriate level of emotion throughout conversation. MOB reports to be concerned about call to children services as ?I don?t want to loose this .? MOB reports to have a place to stay now and the room that MOB and FOB rent is ?big enough for us all.? MOB denies any concerns with being able to care for infant. MOB reports the pumping is going well and MOB is encouraged that MOB is able to at least see infant on hernandez in infants room at [facility]. MOB not currently open to counseling services as ?I know what I need.? MOB reports to have a ?working relationship? with [employer] and ?we know when/if I need to start medication.? This social work case manager offered support and active listening throughout conversation. PLAN: Social Work to continue to follow up with for continued support and any further resources. Nursing updated on plan for social work to continue to follow. MOB has not been cleared by social work at this time. Social work to continue to follow. Sana GIL, PJ
[2021-10-30] MEDS: Senna/Docusate Sodium 1 Tablet PO (12:36)
[2021-10-30 16:54] LABS: Absolute Lymphocyte Count 2.58 X10^3/uL (0.83-4.51); Absolute Neutrophil Count 6.9 X10^3/uL (2.0-7.7); Basophil# 0.03 X10^3/uL; Basophil% 0.3 % (0-1); Eosinophil# 0.03 X10^3/uL; Eosinophils% 0.3 % (0-5); Hematocrit 34.5 % (37-47); Hemoglobin 11.5 g/dL (12.0-15.0); Lymphocyte # 2.58 X10^3/ul (0.83-4.51); Lymphocyte % 24.7 % (19-41); Mean Corp Hgb Conc 33.3 g/dL (32-36); Mean Corpuscular Hgb 29.6 pg (27.0-32.0); Mean Corpuscular Volume 88.9 fL (81-99); Mean Platelet Vol. 11.9 fl (6.2-12.0); Monocyte# 0.75 X10^3/uL; Monocyte% 7.2 % (0-10); NRBC Flagged by Analyzer 0 % (0-5); Neutrophil # 6.92 X10^3/uL (2.7-7.7); Neutrophil % 66.2 % (47-70); Platelet Count 222 K/mm3 (150-450); RBC Distribution Width CV 12.9 % (11.6-14.6); RBC Distribution Width SD 41.7 fl (35.1-43.9); Red Blood Count 3.88 M/mm3 (4.2-5.4); White Blood Count 10.5 K/mm3 (4.4-11.0)
--- NOTE | 2021-10-30 17:10 | NURSING ---
updated on pt's CBC, pt also made aware.
[2021-10-30] MEDS: Methocarbamol 500 MG Tablet 1000 MG PO (21:10)
[2021-10-30] MEDS: Enoxaparin 40 MG/0.4 ML Syringe SC (22:43)
[2021-10-31] VITALS (11 sets, daily range): BP systolic 131–153; BP diastolic 74–95; PULSE 46–82; RESP 16–18; TEMP 36.4–36.8; O2SAT 97–100
[2021-10-31] MEDS: Ibuprofen 600 MG Tablet PO ×3 (01:30→14:13)
[2021-10-31] MEDS: Methocarbamol 500 MG Tablet 1000 MG PO (04:30)
[2021-10-31] MEDS: Acetaminophen 500 MG Tablet 1000 MG PO ×2 (04:31→11:45)
--- NOTE | 2021-10-31 09:28 | PCM.DC ---
Discharge Instructions Diet Discharge Diet: No restrictions Activity Discharge Activity: May Not Drive (for 2 weeks or while taking narcotic pain medications.), May Shower and May Take a Tub Bath (in 7 days) May shower in (days): 0 May resume sexual activity in: 4-6 weeks Weight Bearing Status: Full weight bearing Lifting Restrictions: 20 pounds Dressing / Incision Call your doctor if your incision/area has: Continuous Slow Oozing, Sudden Increased Bleeding, Increased Pain/ Swelling, Increased Redness and Foul Smelling Discharge Call your doctor if you observe: Fever of 101 or Higher and Using more than 1 pad per hour (for 2 hours) Suture Line Care: Avoid Pulling/Pushing and Avoid Pinching/Bending Cleanse incision/area with: Soap & Water and Keep Dressing Clean & Dry Follow Up Care Please Follow Up With: Sherley Houston MD When: Call [phone] to make an appointment for an incision check in 1-2 weeks. Test Results: Test results from this visit will be discussed in further detail at your follow-up appointment, if applicable. Discharge Plan Admission Admit Date/Time: 10/29/21 05:00 Attending Provider: Sherley Houston Primary Care Provider: Care Physician,Becky Primary Discharge Orders/Prescriptions Prescriptions: New naproxen 250 MG tablet 250 - 500 mg PO Q8H PRN PRN (Reason: MILD PAIN) Qty: 30 RF: 1 oxycodone-acetaminophen [Percocet] 5-325 mg tablet 1 tab PO Q6H PRN (Reason: pain) 7 Days Qty: 20 RF: 0 No Action promethazine 12.5 mg tablet 12.5 mg PO Q6H PRN (Reason: nausea and vomiting) Qty: 60 RF: 3 famotidine [Pepcid] 20 mg tablet 20 mg PO BID Qty: 60 RF: 5 Referrals / Follow Up: Care Physician,Becky Primary [Primary Care Provider] - Disposition Disposition (needs filled in before D/C Order can be placed): Home, Self Care
--- NOTE | 2021-10-31 09:31 | PCM.PN.OB ---
Subjective Subjective Patient doing well without complaints. Tolerating PO. Ambulating and voiding without difficulty. pumping going well. Denies chest pain, shortness of breath, calf pain/swelling, fevers, chills, lightheadedness. Objective Data Objective Data Vital Signs: Vital Signs Temp Pulse Resp BP Pulse Ox 97.8 F 58 L 16 151/86 H 99 10/31/21 08:40 10/31/21 08:40 10/31/21 08:40 10/31/21 08:40 10/31/21 08:40 Oxygen Delivery Method Room Air Weight: 177 lb 7.554 oz Body Mass Index (BMI) 28.6 Intake & Output: Intake and Output for Last 24 Hours 10/29/21 10/30/21 10/31/21 23:59 23:59 23:59 Intake Total 1432.67 / 1432.67 1800 / 1800 Output Total 450 / 450 400 / 400 Balance 982.67 / 982.67 1400 / 1400 Lab / Micro Data Result Diagrams: 10/30/21 16:30 Labs: Laboratory Results - last 24 hr 10/28/21 21:00: Crossmatch See Detail 10/30/21 16:30: WBC 10.5, RBC 3.88 L, Hgb 11.5 L, Hct 34.5 L, MCV 88.9, MCH 29.6, MCHC 33.3, RDW Std Deviation 41.7, RDW Coeff of Karmen 12.9, Plt Count 222, MPV 11.9, Immature Gran % (Auto) 1.300 H, Neut % (Auto) 66.2, Lymph % (Auto) 24.7, [place] % (Auto) 7.2, Eos % (Auto) 0.3, Baso % (Auto) 0.3, Absolute Neuts (auto) 6.9, Absolute Lymphs (auto) 2.58, Nucleated RBC % 0 Micro: Microbiology 10/28/21 Unknown Genital vaginal Group B Streptococcus Culture - Final Group B Beta Streptococcus is not isolated. 10/28/21 21:00 Urine, Clean Catch Urine Culture - Final Culture exhibits no growth. 10/28/21 21:32 Nasal Secretion SARS-CoV-2 Antigen (Rapid) - Final SARS-CoV-2 (COVID 19) ROS Constitutional Constitutional: Reports systems reviewed and no addt'l complaints, except as documented Cardiovascular Cardiovascular: Reports systems reviewed and no addt'l complaints, except as documented Respiratory/Chest Respiratory/Chest: Reports systems reviewed and no addt'l complaints, except as documented Gastrointestinal Gastrointestinal: Reports systems reviewed and no addt'l complaints, except as documented Physical Exam Const alert, oriented x3 and no apparent distress HEENT Head and Scalp: atraumatic Resp normal respiratory effort GI soft to palpation and non-tender Inspection: incision intact, healing well and drainage (none) Bimanual Exam - Vag & Uterus: uterus non-tender Uterus Palpation: uterus fundus firm (below Umbilicus) Assessment & Plan (1) hemorrhage: COMMENT: sec accreata (2) Placental abruption in third trimester: (3) Circumvallate placenta: (4) Placenta accreta: COMMENT: with complete previa (5) Delivery by hysterectomy: (6) COVID-19 affecting , antepartum: COMMENT: symptom onset 10/23 with pos covid test upon admission 10/28. mild symptoms. (7) premature rupture of membranes (PPROM) delivered, current hospitalization: COMMENT: no signs of triple I at this time. gent, clinda, analiithro for latency. switch to oral antibiotics after 48 hours. plan delivery at 34 unless other materanal/ indications develop (8) History of delivery: COMMENT: planning RLTCS (9) Acute postoperative anemia due to greater than expected blood loss: COMMENT: s/p 2 units, 2 units on hold. repeat cbc today PLAN: s/p c hyst PPD # 2 1. routine post care 2. pumping breast milk 3. rh positive 4. rubella immune elevated bp today and low HR- give IVF bolus and check cbc cmp lactic acid. see PL details for additional A/P information
[2021-10-31] MEDS: Senna/Docusate Sodium 1 Tablet PO (10:02)
[2021-10-31] MEDS: Famotidine 20 MG Tablet PO (10:03)
[2021-10-31] MEDS: 0.9% Saline Lock 10 ML Syringe IV (10:04)
[2021-10-31] MEDS: Lactated Ringers 1,000 ML 999 ML IV (10:15)
[2021-10-31] MEDS: oxyCODONE 5 MG Tablet PO (10:35)
[2021-10-31 10:42] LABS: Absolute Neutrophil Count 4.7 X10^3/uL (2.0-7.7); Basophil# 0.02 X10^3/uL; Basophil% 0.3 % (0-1); Eosinophil# 0.08 X10^3/uL; Hematocrit 33.4 % (37-47); Hemoglobin 11.2 g/dL (12.0-15.0); Lymphocyte % 27.2 % (19-41); Mean Corp Hgb Conc 33.5 g/dL (32-36); Mean Corpuscular Hgb 30.1 pg (27.0-32.0); Mean Corpuscular Volume 89.8 fL (81-99); Mean Platelet Vol. 11.3 fl (6.2-12.0); Monocyte# 0.74 X10^3/uL; Monocyte% 9.6 % (0-10); NRBC Flagged by Analyzer 0 % (0-5); Neutrophil # 4.67 X10^3/uL (2.7-7.7); Neutrophil % 60.3 % (47-70); Platelet Count 222 K/mm3 (150-450); RBC Distribution Width SD 42.9 fl (35.1-43.9); Red Blood Count 3.72 M/mm3 (4.2-5.4); White Blood Count 7.7 K/mm3 (4.4-11.0)
[2021-10-31 11:00] LABS: ALB/GLOB Ratio 0.5 RATIO (0.9-2.4); AST(SGOT) 110 U/L (15-37); Alanine Aminotransfer ALT/SGPT 46 U/L (13-56); Albumin, Serum 2.1 g/dL (3.2-5.0); Alkaline Phosphatase 188 U/L (45-117); Anion Gap 8 (5-15); BUN 10 mg/dL (7-18); BUN/Creat Ratio 14.7 RATIO (10-20); Calcium,Total 8.8 mg/dL (8.5-10.1); Chloride 104 mmol/L (98-107); Creatinine, Serum 0.68 mg/dL (0.55-1.02); EST Glomerular Filtration Rate 109 mL/min (>60); Est Glom Filt Rate - Afr Amer 131 mL/min (>60); Estimated Creatinine Clearance 114.28 ml/min; Globulin 4.2 g/dL (2.2-4.2); Glucose 88 mg/dL (74-106); Potassium 3.9 mmol/L (3.5-5.1); Protein, Total 6.3 g/dL (6.4-8.2); Sodium Level 139 mmol/L (136-145)
[2021-10-31 11:11] LABS: Lactic Acid 2.4 mmol/L (0.4-1.9)
--- NOTE | 2021-10-31 13:40 | CASEMGMT ---
Social Work Labor and Delivery Unit Handoff received from PJ Small. Noted concerns related to maternal THC use during , recent inpatient hospitalization for mental health, mental health currently untreated, and recent children services resulting in loss of custody of older children within the last three month. Due to concerns present, need for children services referral is indicated for baby. Also present, indication for emotional support t the parents. Met with MOB and FOB in room. Unable to meet with MOB privately due to COVID stratus and FOB not supposed to leave the room. MOB expressed that was are this information writer would be visiting. Intention to touch base with parents to touch on concerns, for clarification of issues before calling children services. This information writer was with parents from approximately [phone]. Both parents talkative, and appearing to want to talk to this information writer. Much emotional support offered. From conversation MOB and FOB shared: MOB and FOB reportedly rent a room from the ELIECER's boss and have lived in this residence for the last 6 months in [place], [place] (address [address], [place]). ELIECER's boss also lives in the home. There are a total of 5 children between the two parents. Jose Carpenter, born 11.25.2015; loss of custody approximately 3 months ago. In custody of paternal grandmother Alexa Carpenter. MOB and FOB report to still have contact with the children. Mohamud Carpenter, born 12.05.2019; custody same as Jose. /Citlali Carpenter, born [birth year].29.2021, currently at [facility]. FOFlorentin's older children are Caio age 14, and Edith age 16 (last names not discussed) care started at 9 weeks, with a gap in care between 13 to 20 weeks gestation. Programs/Agencies Involved: [facility] for food and medical. Is aware of WIC and how to apply. Declines [facility] Children Services History: History with [facility] services for issues related to maternal THC use during with Mohamud. Most recent involvement reported by the MOB and FOB with [facility]. Parents report that [facility] removed Jose and Mohamud due to MOB's mental health status and concerns with housing. FOB reports there was a hold in the floor, but that could easily be fixed. Lost off custody reportedly occurred approximately 3 months ago. Behavioral Health Issues: Mental Health History: MOB reports history of ADHD, Anxiety, Depression, and Bi-polar. MOB reports history of inpatient psychiatric placement with last placement being three months ago. MOB reports that had to be vocal and say things in order to get help, as there was such a long waiting list for community psychiatric providers. It is reported that MOB had suicidal thoughts with plan to complete suicide, which resulted in the inpatient admission. MOB denies any current medications to manage mental health but repots has a plan with OBGYN to restart Latuda if needed. MOB reports has history of treatment with various mood stabilizers but went off medications for the . Patient denies any active counseling services but a history of. MOB denies active suicidal thoughts, plans, intents. MOB reports history of Depression (PPD) with Jose. Substance Use History: MOB admits to using ?CBD,? gummies that bought from the [employer]. MOB reports she was unaware that CBD contained THC. MOB endorses to this information writer history of marijuana use with cessation upon knowledge of in April 2021. MOB reports considering getting medical marijuana card. Denies other illicit drug use history of use of such during . No reports of alcohol use. MOB and FOB both smoke tobacco. . FOB/Paternal History: FOFlorentin admits to this information writer at one point in his life being prescribed medications for Bipolar. FOB denies taking medications now or any concern regarding mental health. No reports of substance use. Maternal and Drug Screens: MOB with positive tox screen for THC on 05/15/2021 and at delivery on 10/29/2021. No drug screens for baby noted. Family Stressors: Loss of custody of older children 3 months ago. Recent inpatient psychiatric hospitalization for the MOB, not currently in treatment or on medications. MOB has COVID and has not met, touched, held the baby. Cannot have contact until 11.03.2021. MOB upset about delivery and needing hysterectomy. Worry about children services involvement for Citlali. Support Systems: MOB and FOB identify each other as supports. FOB's family is local and supportive. FOFlorentin's mother Alexa has custody of Jose and Mohamud. Assessment Met with the MOB and FOB at length for social work assessment. MOB and FOB both cooperative with social worker school, with MOB voicing remembering this information writer from older son's admission to [facility] in 2019. MOB and FOB both talkative, sometimes talking at the same time to this information writer. Both parents intermittently teary eyed. Parents spent much time discussing feelings about delivery and being unable to see Citlali yet. Emotional support offered. Spent time reviewing rules and procedures for visitation and reported expectations for the parent related to quarantine and isolation from each other. Typed out information so parents could refer back, as parents do appear overwhelmed and upset. At time of assessment the parents, while not happy about rules, are accepting when talking to this information writer. MOB reported that she and the FOB are a team and will not be meeting the baby without the other. Therefore, MOB reports will not be coming to hospital to visit with baby until the FOB is cleared also for visitation. MOB reports plan for she and the FOB to isolate from each other starting today 10.31.21, then five days will be 11.05.2021. FOB will plan to get a PCR test. This information writer reinforced that need negative results and that FOB must not have any symptoms of COVID. MOB expressed understanding of this. Talked with MOB and FOB about need to call children services due to infant exposure to marijuana in utero. Additional concern due to such recent [facility] involvement resulting in loss of custody of other children. Allowed parents to ask questions. Provided community resource packets for both [facility]; packet on mood and anxiety disorders. Safe Plan of Care for : MOB reports plan to abstain marijuana while breast feeding baby. Reports contemplation of getting a medical card. Discussed that if future use occurs, no use in front of or around children. Plan MOB discharging today. [facility] is in [facility] system will be followed by this information writer in the [facility] when reverse transfer to [place] occurs. Social Work to follow and assist this family for support as needed. Will be calling children services prior to baby's discharge. PJ Mcbride
[2021-10-31 14:34] LABS: Reflex Lactate? Y
[2021-10-31 14:58] LABS: ALB/GLOB Ratio 0.5 RATIO (0.9-2.4); AST(SGOT) 61 U/L (15-37); Alanine Aminotransfer ALT/SGPT 53 U/L (13-56); Albumin, Serum 2.1 g/dL (3.2-5.0); Alkaline Phosphatase 203 U/L (45-117); Anion Gap 6 (5-15); BUN 10 mg/dL (7-18); BUN/Creat Ratio 16.3 RATIO (10-20); Calcium,Total 8.6 mg/dL (8.5-10.1); Chloride 101 mmol/L (98-107); Creatinine, Serum 0.62 mg/dL (0.55-1.02); EST Glomerular Filtration Rate 122 mL/min (>60); Est Glom Filt Rate - Afr Amer 147 mL/min (>60); Estimated Creatinine Clearance 125.34 ml/min; Globulin 4.2 g/dL (2.2-4.2); Glucose 87 mg/dL (74-106); Protein, Total 6.3 g/dL (6.4-8.2); Sodium Level 136 mmol/L (136-145)
--- NOTE | 2021-10-31 15:17 | PN_ITS ---
Progress Note fu bloodwork reviewed, stable lactic acid elevated likely sec to blood transfusion, ast lowering. vitals stable and good oral fluids. discussed disc harging patient with nursing.
== END 2021-10-31 16:45 | disposition home or self-care (01) | DRG 539 ==
LOC: WPOUT 10-31 14:11
PROVIDERS: Obstetrics & Gynecology; Admitting Provider Obstetrics & Gynecology; Visit Provider Obstetrics & Gynecology
DX: O42.913 Preterm premature rupture of membranes, unspecified as to length of time between rupture and onset of labor, third trimester (principal); U07.1 COVID-19; O44.13 Complete placenta previa with hemorrhage, third trimester; O45.93 Premature separation of placenta, unspecified, third trimester; D62 Acute posthemorrhagic anemia; F17.200 Nicotine dependence, unspecified, uncomplicated; A60.00 Herpesviral infection of urogenital system, unspecified; F41.9 Anxiety disorder, unspecified; O43.113 Circumvallate placenta, third trimester; O43.213 Placenta accreta, third trimester; O99.334 Smoking (tobacco) complicating childbirth; Z3A.33 33 weeks gestation of pregnancy; Z37.0 Single live birth; O99.344 Other mental disorders complicating childbirth; O90.81 Anemia of the puerperium; O34.211 Maternal care for low transverse scar from previous cesarean delivery; O98.52 Other viral diseases complicating childbirth; O98.32 Other infections with a predominantly sexual mode of transmission complicating childbirth; F32.A Depression, unspecified; O72.1 Other immediate postpartum hemorrhage; Z79.899 Other long term (current) drug therapy; O72.0 Third-stage hemorrhage
CPT/HCPCS: 59025; 59050; 76816; 76817; 80053; 80307; 81001; 83605; 84112; 85025; 85027; 85384; 86850; 86900; 86901; 86920; 87081; 87086; 87426; 87491; 87591; 87635; 87653; 88307; 99218; 99251; J7120; P9016; A4216; G0378; G0463; J0702; J2405; U0003; U0005